=== PATIENT | female | born 1950 | race Caucasian/White ===

== ENCOUNTER 2021-04-09 11:46 | Outpatient (CLI) | payer MEDICARE, BC | END 2021-04-09 23:59 | disposition home or self-care (01) | LOC: LAB 11:46 | PROVIDERS: ATTEND Nurse Practitioner | DX: R05.1 Acute cough (principal); Z20.822 Contact with and (suspected) exposure to COVID-19 ==

== ENCOUNTER 2021-05-22 09:36 | Outpatient (CLI) | payer MEDICARE, BC | END 2021-05-22 09:37 | disposition critical access hospital (66) | LOC: EMS 09:36 | DX: S99.912A Unspecified injury of left ankle, initial encounter (principal); M25.552 Pain in left hip; W10.8XXA Fall (on) (from) other stairs and steps, initial encounter; Y92.008 Other place in unspecified non-institutional (private) residence as the place of occurrence of the external cause | CPT/HCPCS: A0425; A0427 ==

== ENCOUNTER 2021-05-22 09:54 | Inpatient (IN) | payer MEDICARE, BC ==
[2021-05-22] MEDS ORDERED: ceFAZolin 1 GM in SODIUM CHLORIDE 0.9% MINIBAG 100 ML IV STA (10:08)
[2021-05-22] MEDS ORDERED: TETANUS/DIPHTHERIA/PERTUSSIS 0.5 ML SYRINGE IM ONE (10:08)
[2021-05-22] MEDS ORDERED: HYDROmorphone 1 MG/ML CARPUJECT IVP STA (10:09)
--- NOTE | 2021-05-22 10:14 | ED Physician Documentation ---
PD HPI LOWER EXT INJURY - Stated complaint Stated Complaint: L LEG/ANKLE/HIP PX - Chief complaint Chief Complaint: Trauma Ext - History obtained from History obtained from: Patient, EMS - History of Present Illness PD HPI LOW EXT INJURY LOCATION: Left, Ankle Type of injury: Fall Where injury occurred: Home Pain level max: 9 Pain level now: 4 Improved by: Rest Worsened by: Moving, Palpating Contributing factors: No: Anticoagulated - Additional information Additional information: Patient is a 71-year-old female who presents to the emergency department after a slip and fall. She fell down approximately 1 stair. Complaining of pain and deformity of the left ankle. Bleeding noted at the site. She is not anticoagulated. No head, neck, back pain. Initially did have some hip pain as well, but this has since resolved and she states she can move the hip and it does not hurt. Review of Systems Ten Systems: 10 systems reviewed and negative Constitutional: denies: Fever, Chills Respiratory: denies: Cough GI: denies: Nausea, Vomiting, Diarrhea Skin: denies: Rash Musculoskeletal: denies: Neck pain, Back pain Neurologic: denies: Headache PD PAST MEDICAL HISTORY - Past Medical History Past Medical History: Yes Endocrine/Autoimmune: HyPOthyroidism - Present Medications Home Medications: Ambulatory Orders Medication Instructions Recorded Confirmed Venlafaxine HCl [Effexor Xr] 150 mg PO DAILY 05/22/21 05/22/21 buPROPion HCL [Bupropion Xl] 150 mg PO DAILY 05/22/21 05/22/21 - Allergies Allergies/Adverse Reactions: Allergies Allergy/AdvReac Type Severity Reaction Status Date / Time bee venom protein (honey bee) Allergy Anaphylaxis Verified 05/22/21 14:36 - Living Situation Living Situation: reports: With family Living Arrangement: reports: At home - Social History Does the pt have substance abuse?: No - Family History Family history: reports: Non contributory PD ED PE NORMAL - Vitals Vital signs reviewed: Yes - General General: Alert and oriented X 3, No acute distress, Well developed/nourished - HEENT HEENT: Atraumatic, PERRL, Moist mucous membranes - Neck Neck: Supple, no meningeal sign, No bony TTP, C-Spine cleared by NEXUS criteria - Cardiac Cardiac: RRR, Strong equal pulses - Respiratory Respiratory: No respiratory distress, Clear bilaterally - Abdomen Abdomen: Soft, Non tender, Non distended - Back Back: No spinal TTP - Derm Derm: Warm and dry - Extremities Extremities: Other (Deformity noted to the left lower tib/fib area. Just above the ankle. There is an open laceration with bleeding. Neurovascularly intact. 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, No motor deficit, No sensory deficit, Normal speech Eye Opening: Spontaneous Motor: Obeys Commands Verbal: Oriented GCS Score: 15 - Psych Psych: Normal mood, Normal affect Results - Vitals Vitals: Vital Signs - 24 hr 05/22/21 09:59 Temperature 36.6 C Heart Rate 86 Respiratory 16 Rate Blood Pressure 144/69 H O2 Saturation 96 Oxygen O2 Source Room air - EKG (time done) 1117 Rate: Rate (enter#) (81) Rhythm: NSR [place]: Normal Intervals: Normal GA QRS: Normal Ischemia: Normal ST segments - Labs Labs: Laboratory Tests 05/22/21 05/22/21 05/22/21 10:24 10:24 12:17 WBC 7.7 RBC 4.19 L Hgb 12.8 Hct 37.1 MCV 88.5 MCH 30.5 MCHC 34.5 RDW 12.9 Plt Count 234 MPV 8.8 Neut # (Auto) 4.3 Lymph # (Auto) 2.3 Heard # (Auto) 1.1 H Eos # (Auto) 0.1 Baso # (Auto) 0.1 Absolute Nucleated RBC 0.00 Nucleated RBC % 0.0 Sodium 138 Potassium 4.0 Chloride 100 L Carbon Dioxide 27 Anion Gap 11.0 BUN 23 H Creatinine 0.7 Estimated GFR (MDRD) 82 L Glucose 105 H Calcium 9.6 Total Bilirubin 0.6 AST 25 ALT 25 Alkaline Phosphatase 83 Total Protein 7.1 Albumin 4.4 Globulin 2.7 Albumin/Globulin Ratio 1.6 Lipase 32 Nasal Adenovirus (PCR) NOT DETECTED Nasal B. parapertussis DNA (PCR) NOT DETECTED Nasal Coronavir 229E PCR NOT DETECTED Nasal Coronavir HKU1 PCR NOT DETECTED Nasal Coronavir NL63 PCR NOT DETECTED Nasal Coronavir OC43 PCR NOT DETECTED Nasal Enterovir/Rhinovir PCR DETECTED A Nasal Influenza B PCR NOT DETECTED Nasal Influenza A PCR NOT DETECTED Nasal Parainfluen 1 PCR NOT DETECTED Nasal Parainfluen 2 PCR NOT DETECTED Nasal Parainfluen 3 PCR NOT DETECTED Nasal Parainfluen 4 PCR NOT DETECTED Nasal RSV (PCR) NOT DETECTED Nasal B.pertussis DNA PCR NOT DETECTED Nasal C.pneumoniae (PCR) NOT DETECTED Ross Human Metapneumo PCR NOT DETECTED Nasal M.pneumoniae (PCR) NOT DETECTED Nasal SARS-CoV-2 (PCR) NOT DETECTED - Rads (name of study) L ankle xray Radiology: Final report received, EMP read contemporaneously, See rad report cxr Radiology: Final report received, EMP read contemporaneously, See rad report Procedures - Splint (location) Left lower extremity Splint applied by: Physician, Tech Type of splint: Fiberglass, Short leg, Posterior Other: Patient tolerated well, No complications, Neurovascular intact PD MEDICAL DECISION MAKING - ED course Complexity details: reviewed results, re-evaluated patient, considered differential, d/w patient, d/w bridal consultant ED course: 71-year-old female presents to the emergency department with a left ankle fracture. Appears to be an open fracture from a puncture from the tibia. Findings were discussed with Dr. Zepeda, orthopedics who evaluated the images as well. Request that we apply gentle traction and place the patient in a splint. This was done. He also requested that we dressed the wound with Betadine and gauze. This was done as well. Neurovascularly intact. Patient was given Ancef IV. Tetanus up-to-date. Discussed the case with the hospitalist, Dr. Perry who will admit Patient will be admitted for further care. This document was made in part using voice recognition software. While efforts are made to proofread this document, sound alike and grammatical errors may occur. IMPRESSION: 1. A comminuted distal tibial fracture is displaced and angulated with a crack that extends to the subtalar joint. 2. Associated angulated, displaced distal fibular shaft fracture with overriding. IMPRESSION: No evidence acute pulmonary process. Departure - Departure Disposition: [facility] DC/Xfer Clinical Impression: Open fracture of tibia and fibula Qualifiers: Encounter type: initial encounter Open fracture type: open type I or II Laterality: left Qualified Code(s): S82.202B - Unspecified fracture of shaft of left tibia, initial encounter for open fracture type I or II Condition: Stable Discharge Date/Time: 05/22/21 16:00
[2021-05-22 10:29] LABS: BASOPHILS # (AUTO) 0.1 10^3/uL (0.0-0.1); BASOPHILS % (AUTO) 0.8 %; EOSINOPHILS # (AUTO) 0.1 10^3/uL (0.0-0.7); HCT - HEMATOCRIT 37.1 % (37.0-47.0); HGB - HEMOGLOBIN 12.8 g/dL (12.0-16.0); LYMPHOCYTES # (AUTO) 2.3 10^3/uL (1.5-3.5); LYMPHOCYTES % (AUTO) 29.1 %; MEAN CORPUSCULAR HEMOGLOBIN 30.5 pg (27.0-31.0); MEAN CORPUSCULAR HGB CONC 34.5 g/dL (32.0-36.0); MEAN CORPUSCULAR VOLUME 88.5 fL (81.0-99.0); MEAN PLATELET VOLUME 8.8 fL (7.9-10.8); MONOCYTES # (AUTO) 1.1 10^3/uL (0.0-1.0); MONOCYTES % (AUTO) 13.8 %; NEUTROPHILS # (AUTO) 4.3 10^3/uL (1.5-6.6); NEUTROPHILS % (AUTO) 55.2 %; PLT - PLATELET COUNT 234 10^3/uL (130-450); RED BLOOD COUNT 4.19 10^6/uL (4.20-5.40); RED CELL DISTRIBUTION WIDTH 12.9 % (12.0-15.0); WHITE BLOOD COUNT 7.7 x10^3/uL (4.8-10.8)
[2021-05-22 10:42] LABS: ALBUMIN 4.4 g/dL (3.2-5.5); ALBUMIN/GLOBULIN RATIO 1.6 (1.0-2.2); BILIRUBIN,TOTAL 0.6 mg/dL (0.2-1.0); CALCIUM 9.6 mg/dL (8.5-10.3); CREATININE 0.7 mg/dL (0.4-1.0); TOTAL PROTEIN 7.1 g/dL (6.7-8.2)
--- NOTE | 2021-05-22 10:53 | XRAY Report ---
PROCEDURE: Ankle 3 View LT INDICATIONS: fall, ankle pain TECHNIQUE: 2 views of the ankle were acquired. COMPARISON: None FINDINGS: Bones: There is a comminuted, angulated, displaced distal left tibial diametaphyseal fracture with a nondisplaced crack extending vertically down into the articular surface at the tibiotalar joint. Ther e is a displaced distal shaft fracture of the left fibula with angulation and overriding. Ankle morti se is normally aligned. No suspicious bony lesions. Soft tissues: No tibiotalar joint effusion. Achilles tendon appears normal. IMPRESSION: 1. A comminuted distal tibial fracture is displaced and angulated with a crack that extends to the dooley btalar joint. 2. Associated angulated, displaced distal fibular shaft fracture with overriding. Reviewed by: Ricardo Morejon MD on 05/22/2021 10:52 AM [facility] [place] Approved by: Ricardo Morejon MD on 05/22/2021 10:52 AM [facility] [place] Station ID: [id number]
--- NOTE | 2021-05-22 10:54 | XRAY Report ---
PROCEDURE: Chest 1 View X-Ray INDICATIONS: pre-op TECHNIQUE: One view of the chest was acquired. COMPARISON: None FINDINGS: Surgical changes and devices: None. Lungs and pleura: No pleural effusions or pneumothorax. Lungs are clear. Mediastinum: Mediastinal contours appear normal. Heart size is normal. Bones and chest wall: No suspicious bony lesions. Overlying soft tissues appear unremarkable. IMPRESSION: No evidence acute pulmonary process. Reviewed by: Ricardo Morejon MD on 05/22/2021 10:53 AM [facility] Approved by: Ricardo Morejon MD on 05/22/2021 10:53 AM [facility] Station ID: [id number]
[2021-05-22] MEDS ORDERED: MORPHINE 2 MG/ML CARPUJECT IVP STA ×2 (11:32→12:27)
[2021-05-22 13:28] LABS: B. PARAPERTUSSIS- RESP PCR PAN NOT DETECTED; B. PERTUSSIS- RESP PCR PANEL NOT DETECTED; C. PNEUMONIAE- RESP PCR PANEL NOT DETECTED; CORONAVIRUS 229E-RESP PCR NOT DETECTED; CORONAVIRUS HKU1-RESP PCR NOT DETECTED; CORONAVIRUS NL63-RESP PCR NOT DETECTED; CORONAVIRUS OC43-RESP PCR NOT DETECTED; HUMAN METAPNEUMOVIRUS NOT DETECTED; INFLUENZA A- RESP PCR PANEL NOT DETECTED; INFLUENZA B - RESP PCR PANEL NOT DETECTED; M. PNEUMONIAE- RESP PCR PANEL NOT DETECTED; PARAINFLUENZA VIRUS 1 NOT DETECTED; PARAINFLUENZA VIRUS 2 NOT DETECTED; PARAINFLUENZA VIRUS 3 NOT DETECTED; PARAINFLUENZA VIRUS 4 NOT DETECTED; RHINOVIRUS/ENTEROVIRUS DETECTED; RSV- RESP PCR PANEL NOT DETECTED; SARS-CoV-2 -RESP PCR PANEL NOT DETECTED
[2021-05-22] MEDS ORDERED: ONDANSETRON 4 MG/2 ML VIAL IVP PRN (13:32)
--- NOTE | 2021-05-22 13:41 | HISTORY & PHYSICAL EXAMINATION ---
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 pt report when she was at her home perch, skiing on ice and fall. she denies loss of Consciousness. Pt was sent by ambulance. She fell down approximately 1 stair. she complain of left ankle pain after fall. Pt report there was edema and deformity, and bleeding at the left ankle. She is not taking anticoagulation. she denies other injury, there is no head, neck, back pain or hip pain. Xray of Left lower extremity reveal A comminuted distal tibia fracture is displaced and angulated with a crack that extended to the subtalar joint, Associated angulated, displaced distal fibular shaft fracture with overriding. Orthopedic surgeon was called, plan to have surgery on tomorrow. Discussed care goal with patient, patient hope to have DNR History - Past Medical History Endocrine/Autoimmune: reports: HyPOthyroidism MRSA Hx?: No - Family & Social History Family History: Mother: , Father: Family History Comment/Other: Patient report her father at early of 70 yrs with cardiac problem. Her mother at the age 86 from small bowel obstruction and the complication Living arrangement: At home Living Situation: With family Social History Notes: Patient reported she quit cigarette smoking when she was age 30, she denies alcohol or drug use - POLST Patient has POLST: No Meds/Allgy - Home Medications Home Medications: Ambulatory Orders Medication Instructions Recorded Confirmed Venlafaxine HCl [Effexor Xr] 150 mg PO DAILY 05/22/21 05/22/21 buPROPion HCL [Bupropion Xl] 150 mg PO DAILY 05/22/21 05/22/21 - Allergies Allergies/Adverse Reactions: Allergies Allergy/AdvReac Type Severity Reaction Status Date / Time bee venom protein (honey bee) Allergy Anaphylaxis Verified 05/22/21 14:36 Review of Systems - Constitutional Constitutional: denies: Fever, Chills - Eyes Eyes: denies: Pain - Cardiovascular Cariovascular: denies: Irregular heart rate, Palpitations, Chest pain, Lightheadedness, Syncope, Exertional dyspnea, Decr. exercise tolerance - Respiratory Respiratory: denies: Cough, SOB at rest, SOB with exertion - Gastrointestinal Gastrointestinal: denies: Abdominal pain, Diarrhea, Nausea, Vomiting - Musculoskeletal Musculoskeletal: reports: Muscle pain, Limited range of motion - Neurological Neurological: denies: General weakness, Focal weakness, Headache, Dizziness, Numbness, Abnormal gait, Seizures, Incoordination, Slurred speech Exam - Vital Signs Vital Signs: Vital Signs x48h Temp Pulse Resp BP Pulse Ox 05/22/21 09:59 36.6 C 86 16 144/69 H 96 - Physical Exam General Appearance: positive: No acute distress, Alert. negative: Lethargic Eyes Bilateral: positive: Normal inspection, No lid inflammation ENT: positive: ENT inspection nml, No signs of dehydration. negative: Purulent nasal drainage Neck: positive: Nml inspection, Trachea midline. negative: Tracheal deviation Respiratory: positive: Chest non-tender, No respiratory distress, Breath sounds nml. negative: Wheezes Cardiovascular: positive: Regular rate & rhythm, No murmur. negative: Tachycardia, Bradycardia, Systolic murmur, Diastolic murmur Peripheral Pulses: positive: 2+ Abdomen: positive: Non-tender, Nml bowel sounds, No distention. negative: Tenderness Back: positive: Nml inspection Skin: positive: Color nml, Warm, Dry. negative: Cyanosis Extremities: positive: Non-tender, Other (small blood at left ankle but no active bleeding. intact neurovascular at distal of left lower extremity) Neurologic/Psychiatric: positive: Oriented x3, Sensation nml, Mood/affect nml. negative: Weakness, Sensory loss, Facial droop, Slurred/abnml speech, Depressed mood/affect Conclusion/Plan - Problem List (1) Open fracture of tibia and fibula Conclusion/Plan: Patient had mechanical fall, X-ray show left ankle fracture of tibia and fibula. Orthopedic surgeon was called, plan to have surgery for patient on tomorrow. NPO after midnight, intravenous IV fluids, pain control. Lovenox for DVT prophylaxis Qualifiers: Encounter type: initial encounter Open fracture type: open type I or II Laterality: left Qualified Code(s): S82.202B - Unspecified fracture of shaft of left tibia, initial encounter for open fracture type I or II; S82.402B - Unspecified fracture of shaft of left fibula, initial encounter for open fracture type I or II (2) Encounter for preoperative assessment for noncoronary cardiac surgery Conclusion/Plan: Patient reported she has no cardiac history, EKG show sinus rhythm. She has a mechanical fall, she denied loss of consciousness, cardiac examination is benign. Estimated risk of adverse outcome with non-cardiac surgery show very low risk. Estimated rate of [place], pulmonary edema, VF, cardiac arrest or complete heart block show 0.4%. (3) Depression with anxiety Conclusion/Plan: Stable, Patient has a history of depression, resume patient home meds - Lab Results Fish Bones: 05/22/21 10:24 05/22/21 10:24 Core Measures - Anticipated LOS I expect patient to be DC'd or transferred within 96 hours.: Yes - DVT/VTE - Prophylaxis VTE/DVT Device ordered at admit?: Yes VTE/DVT Prophylaxis med ordered at admit?: Yes
[2021-05-22 14:32] LABS: INR 1.1 (0.8-1.2); PT - PROTHROMBIN TIME 12.8 secs (9.9-12.6)
[2021-05-22] MEDS: oxyCODONE 5 MG TABLET PO PRN ×2 (16:27→21:52)
[2021-05-22] MEDS: MORPHINE 2 MG/ML CARPUJECT IVP PRN ×3 (17:02→23:12)
[2021-05-22] MEDS: SODIUM CHLORIDE FLUSH 0.9% 10 ML SYRINGE IVP SCH (17:02)
[2021-05-22] MEDS: SODIUM CHLORIDE FLUSH 0.9% 10 ML SYRINGE IVP PRN ×2 (19:26→23:12)
--- NOTE | 2021-05-22 19:42 | HISTORY & PHYSICAL EXAMINATION ---
HPI - History Obtained From History obtained from: Patient - History of Present Illness HPI Comment/Other: 71-year-old woman who sustained a injury to her left leg earlier today at home. She was outdoors, coming down steps of her porch. When she hit the last step there was a patch of ice that caused her to slip and fall with injury to her left lower leg. She lives alone, recently moved to [place] about 3 months ago. She is independent in her activities of daily living. She had some local wound care to her left leg and a reduction of her deformity to left leg in the emergency room. She has been splinted, fiberglass, to left leg. She is relatively comfortable, alert. She is normally an outdoor ambulator and independent in activities of daily living. She has no neurovascular symptoms and her pain is under very good control.She denies chest pain, shortness of breath, dizziness, syncope or loss of consciousness associated with the fall. After the injury she was able to use her telephone to call for help but she could not bear any weight on her left leg. PMH/PSH - Past Medical History Endocrine/Autoimmune: positive: HyPOthyroidism MRSA Hx?: No - Past Surgical History Ortho: positive: Carpal Tunnel surgery Social & Family Hx - Social History Does the pt smoke?: No Smoking Status: Never smoker Does the pt have substance abuse?: No - POLST Patient has POLST: No Meds/Allgy - Home Medications Home Medications: Ambulatory Orders Medication Instructions Recorded Confirmed Venlafaxine HCl [Effexor Xr] 150 mg PO QPM 05/22/21 05/22/21 buPROPion HCL [Bupropion Xl] 150 mg PO QPM 05/22/21 05/22/21 - Allergies Allergies/Adverse Reactions: Allergies Allergy/AdvReac Type Severity Reaction Status Date / Time bee venom protein (honey bee) Allergy Anaphylaxis Verified 05/22/21 14:36 Exam - Vital Signs Vital Signs: Vital Signs x48h Temp Pulse Resp BP Pulse Ox 05/22/21 16:08 36.7 C 85 20 125/69 95 - Physical Exam General Appearance: positive: No acute distress, Alert Respiratory: positive: Chest non-tender, No respiratory distress Cardiovascular: positive: Regular rate & rhythm Peripheral Pulses: positive: 1+ Neurologic/Psychiatric: positive: Oriented x3, Motor nml, Sensation nml Comments/Other: Left leg shows a puncture wound from a open fracture left tibia on the medial side of the left leg distally. There is no clinical deformity. Neurovascular status is intact. Compartments are soft left leg left knee is nontender. Left foot has normal exam. Results - Lab Results Fish Bones: 05/22/21 10:24 05/22/21 10:24 Other Lab Results: Lab Results x24hrs 05/22/21 05/22/21 05/22/21 Range/Units 14:22 12:17 10:24 WBC (4.8-10.8) x10^3/uL RBC (4.20-5.40) 10^6/uL Hgb (12.0-16.0) g/dL Hct (37.0-47.0) % MCV (81.0-99.0) fL MCH (27.0-31.0) pg MCHC (32.0-36.0) g/dL RDW (12.0-15.0) % Plt Count (130-450) 10^3/uL MPV (7.9-10.8) fL Neut # (Auto) (1.5-6.6) 10^3/uL Lymph # (Auto) (1.5-3.5) 10^3/uL Steele # (Auto) (0.0-1.0) 10^3/uL Eos # (Auto) (0.0-0.7) 10^3/uL Baso # (Auto) (0.0-0.1) 10^3/uL Absolute Nucleated RBC x10^3/uL Nucleated RBC % /100WBC PT 12.8 H (9.9-12.6) secs INR 1.1 (0.8-1.2) Sodium 138 (135-145) mmol/L Potassium 4.0 (3.5-5.0) mmol/L Chloride 100 L (101-111) mmol/L Carbon Dioxide 27 (21-32) mmol/L Anion Gap 11.0 (6-13) BUN 23 H (6-20) mg/dL Creatinine 0.7 (0.4-1.0) mg/dL Estimated GFR (MDRD) 82 L (>89) Glucose 105 H (70-100) mg/dL Calcium 9.6 (8.5-10.3) mg/dL Total Bilirubin 0.6 (0.2-1.0) mg/dL AST 25 (10-42) IU/L ALT 25 (10-60) IU/L Alkaline Phosphatase 83 (42-121) IU/L Total Protein 7.1 (6.7-8.2) g/dL Albumin 4.4 (3.2-5.5) g/dL Globulin 2.7 (2.1-4.2) g/dL Albumin/Globulin Ratio 1.6 (1.0-2.2) Lipase 32 (22-51) U/L Nasal Adenovirus (PCR) NOT DETECTED Nasal B. parapertussis DNA (PCR) NOT DETECTED Nasal Coronavir 229E PCR NOT DETECTED Nasal Coronavir HKU1 PCR NOT DETECTED Nasal Coronavir NL63 PCR NOT DETECTED Nasal Coronavir OC43 PCR NOT DETECTED Nasal Enterovir/Rhinovir PCR DETECTED A Nasal Influenza B PCR NOT DETECTED Nasal Influenza A PCR NOT DETECTED Nasal Parainfluen 1 PCR NOT DETECTED Nasal Parainfluen 2 PCR NOT DETECTED Nasal Parainfluen 3 PCR NOT DETECTED Nasal Parainfluen 4 PCR NOT DETECTED Nasal RSV (PCR) NOT DETECTED Nasal B.pertussis DNA PCR NOT DETECTED Nasal C.pneumoniae (PCR) NOT DETECTED Ross Human Metapneumo PCR NOT DETECTED Nasal M.pneumoniae (PCR) NOT DETECTED Nasal SARS-CoV-2 (PCR) NOT DETECTED 05/22/21 Range/Units 10:24 WBC 7.7 (4.8-10.8) x10^3/uL RBC 4.19 L (4.20-5.40) 10^6/uL Hgb 12.8 (12.0-16.0) g/dL Hct 37.1 (37.0-47.0) % MCV 88.5 (81.0-99.0) fL MCH 30.5 (27.0-31.0) pg MCHC 34.5 (32.0-36.0) g/dL RDW 12.9 (12.0-15.0) % Plt Count 234 (130-450) 10^3/uL MPV 8.8 (7.9-10.8) fL Neut # (Auto) 4.3 (1.5-6.6) 10^3/uL Lymph # (Auto) 2.3 (1.5-3.5) 10^3/uL Steele # (Auto) 1.1 H (0.0-1.0) 10^3/uL Eos # (Auto) 0.1 (0.0-0.7) 10^3/uL Baso # (Auto) 0.1 (0.0-0.1) 10^3/uL Absolute Nucleated RBC 0.00 x10^3/uL Nucleated RBC % 0.0 /100WBC PT (9.9-12.6) secs INR (0.8-1.2) Sodium (135-145) mmol/L Potassium (3.5-5.0) mmol/L Chloride (101-111) mmol/L Carbon Dioxide (21-32) mmol/L Anion Gap (6-13) BUN (6-20) mg/dL Creatinine (0.4-1.0) mg/dL Estimated GFR (MDRD) (>89) Glucose (70-100) mg/dL Calcium (8.5-10.3) mg/dL Total Bilirubin (0.2-1.0) mg/dL AST (10-42) IU/L ALT (10-60) IU/L Alkaline Phosphatase (42-121) IU/L Total Protein (6.7-8.2) g/dL Albumin (3.2-5.5) g/dL Globulin (2.1-4.2) g/dL Albumin/Globulin Ratio (1.0-2.2) Lipase (22-51) U/L Nasal Adenovirus (PCR) Nasal B. parapertussis DNA (PCR) Nasal Coronavir 229E PCR Nasal Coronavir HKU1 PCR Nasal Coronavir NL63 PCR Nasal Coronavir OC43 PCR Nasal Enterovir/Rhinovir PCR Nasal Influenza B PCR Nasal Influenza A PCR Nasal Parainfluen 1 PCR Nasal Parainfluen 2 PCR Nasal Parainfluen 3 PCR Nasal Parainfluen 4 PCR Nasal RSV (PCR) Nasal B.pertussis DNA PCR Nasal C.pneumoniae (PCR) Ross Human Metapneumo PCR Nasal M.pneumoniae (PCR) Nasal SARS-CoV-2 (PCR) - Diagnostic Imaging Results Diagnostic Imaging Results: negative: Read independently (Open markedly displaced distal tibia and fibular fractures left leg.) Impression/Plan - Problem List Problem List: Open fracture left tibia and fibula The plan is irrigation debridement of open fracture tomorrow morning with intramedullary rodding of left tibia. This would be an open reduction internal fixation of left tibia and possibly the left fibula. I discussed the procedure with the patient and she is in agreement. The risk, goals and likelihood of achieving goals, alternatives to surgery and their consequences, disability and rarely mortality was discussed with her. Both general and procedure specific risks were discussed including adverse reaction to medication or anesthesia, myocardial infarction, cerebrovascular accident and, pulmonary embolus and perioperative infection. There is a potential for malunion, nonunion and infection at fracture site. She is in agreement to the surgery and has signed informed consent.
[2021-05-22] MEDS: buPROPion XL 150 MG TABLET PO SCH (20:51)
[2021-05-22] MEDS: VENLAFAXINE ER 75 MG CAPSULE PO SCH (20:51)
[2021-05-23] MEDS ORDERED: SODIUM CHLORIDE 0.9% 1,000 ML IV SCH (01:00)
[2021-05-23] MEDS: SODIUM CHLORIDE FLUSH 0.9% 10 ML SYRINGE IVP SCH ×4 (01:19→23:34)
[2021-05-23] MEDS: MORPHINE 2 MG/ML CARPUJECT IVP PRN ×2 (04:41→22:03)
[2021-05-23 06:34] LABS: BASOPHILS % (AUTO) 0.8 %; EOSINOPHILS % (AUTO) 0.8 %; HCT - HEMATOCRIT 31.2 % (37.0-47.0); HGB - HEMOGLOBIN 10.7 g/dL (12.0-16.0); LYMPHOCYTES # (AUTO) 2.2 10^3/uL (1.5-3.5); LYMPHOCYTES % (AUTO) 41.2 %; MEAN CORPUSCULAR HEMOGLOBIN 30.5 pg (27.0-31.0); MEAN CORPUSCULAR HGB CONC 34.3 g/dL (32.0-36.0); MEAN CORPUSCULAR VOLUME 88.9 fL (81.0-99.0); MEAN PLATELET VOLUME 9.3 fL (7.9-10.8); MONOCYTES # (AUTO) 0.9 10^3/uL (0.0-1.0); MONOCYTES % (AUTO) 16.8 %; NEUTROPHILS # (AUTO) 2.1 10^3/uL (1.5-6.6); NEUTROPHILS % (AUTO) 40.2 %; PLT - PLATELET COUNT 196 10^3/uL (130-450); RED BLOOD COUNT 3.51 10^6/uL (4.20-5.40); WHITE BLOOD COUNT 5.3 x10^3/uL (4.8-10.8)
[2021-05-23 06:40] LABS: CALCIUM 9.1 mg/dL (8.5-10.3); CREATININE 0.6 mg/dL (0.4-1.0); POTASSIUM 3.9 mmol/L (3.5-5.0)
[2021-05-23] MEDS ORDERED: KETOROLAC 30 MG/ML VIAL ONE (06:47)
[2021-05-23] MEDS ORDERED: DEXAMETHASONE 4 MG/ML VIAL ONE (06:47)
[2021-05-23] MEDS ORDERED: LIDOCAINE-MPF 2% 5 ML VIAL ONE (06:47)
[2021-05-23] MEDS ORDERED: PROPOFOL 200 MG/20 ML VIAL IVP ONE (06:47)
[2021-05-23] MEDS ORDERED: ROPIVACAINE 0.5% PF 20 ML AMPULE ONE (06:47)
[2021-05-23] MEDS ORDERED: ONDANSETRON 4 MG/2 ML VIAL ONE (06:47)
[2021-05-23] MEDS ORDERED: DEXMEDETOMIDINE 200 MCG/2 ML VIAL ONE (06:48)
[2021-05-23] MEDS ORDERED: SODIUM CHLORIDE 0.9% 10 ML VIAL IVP ONE (06:54)
--- NOTE | 2021-05-23 07:23 | ANESTHESIA ---
Pre-Anesthesia VS, & Labs - Diagnosis right tib fib fracture - Procedure ORIF right tibia fibular fracture Vital Signs: Temp Pulse Resp BP Pulse Ox 37.3 C 87 18 122/59 L 92 05/23/21 01:38 05/23/21 01:38 05/23/21 01:38 05/23/21 01:38 05/23/21 01:38 Height: 5 ft 4 in Weight (kg): 66.5 kg Body Mass Index: 25.1 BMI Classification: Overweight - NPO >8 hours - Is Patient ?: No - Lab Results Current Lab Results: Laboratory Tests 05/23/21 06:05: TSH 5.43 05/23/21 06:05: Sodium 137, Potassium 3.9, Chloride 102, Carbon Dioxide 25, Anion Gap 10.0, BUN 19, Creatinine 0.6, Estimated GFR (MDRD) 99, Glucose 100, Calcium 9.1 05/23/21 06:05: WBC 5.3, RBC 3.51 L, Hgb 10.7 L, Hct 31.2 L, MCV 88.9, MCH 30.5, MCHC 34.3, RDW 13.0, Plt Count 196, MPV 9.3, Neut # (Auto) 2.1, Lymph # (Auto) 2.2, [place] # (Auto) 0.9, Eos # (Auto) 0.0, Baso # (Auto) 0.0, Absolute Nucleated RBC 0.00, Nucleated RBC % 0.0 05/22/21 14:22: PT 12.8 H, INR 1.1 05/22/21 10:24: Sodium 138, Potassium 4.0, Chloride 100 L, Carbon Dioxide 27, Anion Gap 11.0, BUN 23 H, Creatinine 0.7, Estimated GFR (MDRD) 82 L, Glucose 105 H, Calcium 9.6, Total Bilirubin 0.6, AST 25, ALT 25, Alkaline Phosphatase 83, Total Protein 7.1, Albumin 4.4, Globulin 2.7, Albumin/Globulin Ratio 1.6, Lipase 32 05/22/21 10:24: WBC 7.7, RBC 4.19 L, Hgb 12.8, Hct 37.1, MCV 88.5, MCH 30.5, MCHC 34.5, RDW 12.9, Plt Count 234, MPV 8.8, Neut # (Auto) 4.3, Lymph # (Auto) 2.3, [place] # (Auto) 1.1 H, Eos # (Auto) 0.1, Baso # (Auto) 0.1, Absolute Nucleated RBC 0.00, Nucleated RBC % 0.0 Fish Bones: 05/23/21 06:05 05/23/21 06:05 Home Medications and Allergies Home Medications: Ambulatory Orders Venlafaxine HCl [Effexor Xr] 150 mg PO QPM 05/22/21 buPROPion HCL [Bupropion Xl] 150 mg PO QPM 05/22/21 Active Medications Acetaminophen (Acetaminophen 325 Mg Tablet) 650 mg PO Q4HR PRN PRN Reason: Pain 1 to 4 Bupropion HCl (Bupropion Xl 150 Mg Tablet) 150 mg PO QPM [facility] Last Admin: 05/22/21 20:51 Dose: 150 mg Documented by: Enoxaparin Sodium (Enoxaparin 40 Mg/0.4 Ml Syringe) 40 mg SUBQ DAILY [facility] Sodium Chloride (Normal Saline 0.9%) 1,000 mls @ 83.3 mls/hr IV .Q12H1M [facility] Stop: 05/24/21 07:13 Levothyroxine Sodium (Levothyroxine 100 Mcg Tablet) 100 mcg PO QDAC [facility] Liothyronine Sodium (Liothyronine 5 Mcg Tablet) 5 mcg PO QDAC [facility] Morphine Sulfate (Morphine 2 Mg/Ml Carpuject) 2 mg IVP Q2HR PRN PRN Reason: Pain 8 to 10 Last Admin: 05/23/21 04:41 Dose: 2 mg Documented by: Ondansetron HCl (Ondansetron 4 Mg/2 Ml Vial) 4 mg IVP Q6HR PRN PRN Reason: Nausea / Vomiting Oxycodone HCl (Oxycodone 5 Mg Tablet) 5 mg PO Q4HR PRN PRN Reason: Pain 5 to 7 Last Admin: 05/22/21 21:52 Dose: 5 mg Documented by: Sodium Chloride (Sodium Chloride Flush 0.9% 10 Ml Syringe) 10 ml IVP PRN PRN PRN Reason: NEEDED PER PROVIDER ORDERS Last Admin: 05/22/21 23:12 Dose: 10 ml Documented by: Sodium Chloride (Sodium Chloride Flush 0.9% 10 Ml Syringe) 10 ml IVP 0100,0900,1700 [facility] Last Admin: 05/23/21 01:19 Dose: Not Given Documented by: Venlafaxine HCl (Venlafaxine Er 75 Mg Capsule) 150 mg PO QPM [facility] Last Admin: 05/22/21 20:51 Dose: 150 mg Documented by: Venlafaxine HCl [Effexor Xr] 150 mg PO QPM 05/22/21 buPROPion HCL [Bupropion Xl] 150 mg PO QPM 05/22/21 Allergies/Adverse Reactions: Allergies Allergy/AdvReac Type Severity Reaction Status Date / Time bee venom protein (honey bee) Allergy Anaphylaxis Verified 05/22/21 14:36 Anes History & Medical History - Anesthetic History Anesthesia Complications: reports: No previous complications - Medical History Endocrine/Autoimmune: reports: HyPOthyroidism Smoking Status: Never smoker History of Cancer?: No - Surgical History Orthopedic: reports: Carpal Tunnel surgery Exam General: Alert, Oriented x3, Cooperative Dental: WNL Mouth Opening: Greater than 4 Fingerbreadths Neck Mobility: Normal Mallampati classification: II Thyromental Distance: greater than 6 cm Respiratory: Lungs clear Cardiovascular: Regular rate Plan Anesthesia Type: General, Popliteal Block, Adductor Block Consent for Procedure(s) Verified and Reviewed: Yes Code Status: Attempt Resuscitation ASA classification: 2-Mild systemic disease Is this case an emergency?: No
[2021-05-23] MEDS ORDERED: fentaNYL 100 MCG/2 ML VIAL ONE (07:39)
[2021-05-23] MEDS ORDERED: ceFAZolin 1 GM VIAL ONE (08:07)
--- NOTE | 2021-05-23 10:42 | OPERATIVE REPORT ---
Operative Report - General Admit Date: 05/22/21 Procedure Date: 05/23/21 Planned Procedure: Open reduction internal fixation left tibia Pre-Op Diagnosis: Open displaced fractures left tibia and fibula Procedure Performed: Open reduction internal fixation left tibia with static locked intramedullary nail: [employer] [place] nail: 8.5 mm x 33 mm with 2 proximal screws and 3 distal locking screws Post Op Diagnosis: Open grade 1 left tibia and fibula fractures - Procedure Note Primary Surgeon: Honorio Zepeda MD Secondary Surgeon: Fili IBANEZ Anesthesia Provider: Lion Boone CRNA Anesthesia Technique: Regional block Indications: This is a 71-year-old woman that slipped on the ice coming down steps of her porch yesterday and sustained a displaced angulated open fracture left tibia and fibula. She had a mechanical type fall as been documented. She has been evaluated preoperatively. She is independent in activities of daily living. She was identified as having open fracture in the emergency room, given cephalosporin antibiotic and had the deformity reduced. She had a puncture type wound at the apex of the tibial fracture, spike of bone penetrating the skin. She had no sign of compartment syndrome and her swelling was relatively mild to the left leg. She was splinted after being seen in the emergency room, admitted and brought to the OR today for surgical stabilization of unstable open fractures left distal tibia and fibula. An informed consent has been obtained. Findings: Both fractures involve the distal portion of the left leg including distal tibia and fibula. The fibular fracture and tibial fractures were short oblique fractures. There was a puncture wound over the medial tibia with an area of about 1 cm of surrounding contused skin. The skin appeared to be viable but obviously abnormal from injury. There is no drainage from the puncture wound. The compartments of the left leg were soft. The fracture was very unstable to left tibia. Complications: None - Other Other Information/Narrative: Patient was brought to the operating room and placed in a supine position after satisfactory anesthesia had been achieved, a bolster was placed beneath the left buttock to internally rotate the left leg. A foam bolster was applied to the table to allow positioning of the left leg with knee flexion. No tourniquet was utilized. The left lower extremity was prepped and draped in sterile manner usual fashion. A timeout procedure was performed by the entire operating room team and all were in agreement. The C arm image intensifier was used intermittently throughout the procedure and had a sterile drape applied. A lateral patellar incision was made beginning adjacent to the lateral edge of the patellar tendon and extending it proximally about 5 cm. The lateral patellar retinaculum was incised. The synovium and capsule were kept intact using a extra-articular approach for the tibial starting point for intramedullary rodding. A guide pin was then inserted and the x-ray was then obtained to try to place the guidepin on the medial edge of the lateral tibial spine and on the anterior cortex of the tibia on the lateral view. Care was taken to achieve optimal rotation by having the lateral edge of the plateau biceps and proximal fibula. The guidepin was inserted and then reamed proximally to allow insertion of a long flexible intramedullary guide pin which was inserted across the fracture with manual reduction of the fracture. Manual reduction was achieved using a [id number] Curlex around the ankle to help manipulate the fracture which was unstable to the distal left tibia. The guidepin was inserted in the midline on both AP and lateral views. The length of the guidepin was measured, 33 mm in length. Intramedullary reaming was then performed from 9mm to 10.0 mm and half millimeter increments. This allowed for use of 8.5 mm diameter grover, 33 mm in length. This was impacted to the fracture site, a concentric reduction was achieved and the grover was impacted distally. The alignment was markedly improved and stabilized. 3 distal locking screws were inserted using a freehand technique through 1 cm incisions. 2 of the screws were inserted from medial to lateral and one from anterior to posterior. The anterior screw was inserted to avoid the tendinous structures over the ant erior ankle. Bicortical fixation was achieved with the locking screws distally. Retrograde impaction of the nail proximally was performed and this allowed the fracture to impact well so that there was no distraction at the fracture site. 2 proximal locking screws were inserted into the tibia. Final intraoperative x- rays were obtained and showed good alignment of the internal fixation, fracture, ankle mortise and knee joint. The puncture wound was gently debrided with low- pressure lavage. Did not make a formal approach into the fracture site because of fear of creating skin necrosis. The retinaculum was closed with 2 oh strata fix suture to the lateral patella. The skin was closed with 3-0 nylon at the lateral incision of the patella and also the small incisions for screw fixation. There is no clinical deformity to the left leg. The compartments were soft. The fracture was stabilized. Xeroform and dry sterile dressings were applied to the left leg. A short leg posterior fiberglass splint was applied.
[2021-05-23] MEDS ORDERED: LACTATED RINGERS 1,000 ML IV ONE (10:48)
[2021-05-23] MEDS ORDERED: fentaNYL 100 MCG/2 ML VIAL IVP PRN (11:06)
[2021-05-23] MEDS ORDERED: HYDROmorphone 0.5 MG/0.5 ML SYRINGE IVP PRN (11:06)
[2021-05-23] MEDS ORDERED: NALOXONE 0.4 MG/ML VIAL IVP PRN (11:06)
[2021-05-23] MEDS ORDERED: ONDANSETRON 4 MG/2 ML VIAL IVP PRN (11:06)
[2021-05-23] MEDS ORDERED: ATROPINE ABBOJECT 1 MG/10 ML SYRINGE IVP PRN (11:06)
[2021-05-23] MEDS ORDERED: MORPHINE 2 MG/ML CARPUJECT IVP PRN (11:06)
--- NOTE | 2021-05-23 11:37 | PROVIDER PROGRESS NOTE ---
Assessment/Plan - Problem List (1) Open fracture of tibia and fibula Qualifiers: Encounter type: initial encounter Open fracture type: open type I or II Laterality: left Qualified Code(s): S82.202B - Unspecified fracture of shaft of left tibia, initial encounter for open fracture type I or II; S82.402B - Unspecified fracture of shaft of left fibula, initial encounter for open fracture type I or II Assessment/Plan: 05/23/21 pt had Open reduction internal fixation left tibia with static locked intramedullary nail done on the morning. continue PT/OT, pain control, DVT prophylaxis with Lovenox. Consult with social work for disposition planning Patient had mechanical fall, X-ray show left ankle fracture of tibia and fibula. Orthopedic surgeon was called, plan to have surgery for patient on tomorrow. NPO after midnight, intravenous IV fluids, pain control. Lovenox for DVT prophylaxis (2) Encounter for preoperative assessment for noncoronary cardiac surgery Conclusion/Plan: Patient reported she has no cardiac history, EKG show sinus rhythm. She has a mechanical fall, she denied loss of consciousness, cardiac examination is benign. Estimated risk of adverse outcome with non-cardiac surgery show very low risk. Estimated rate of ND, pulmonary edema, VF, cardiac arrest or complete heart block show 0.4%. (3) Depression with anxiety Conclusion/Plan: Stable, Patient has a history of depression, resume patient home meds (4)Hypothyroidism TSH is normal, resume home synthroid - Current Meds Current Meds: Current Medications Generic Name Dose Route Start Last Admin Trade Name Freq PRN Reason Stop Dose Admin Bupropion HCl 150 mg 05/22/21 21:00 05/22/21 20:51 Bupropion Xl 150 Mg Tablet PO 150 mg QPM [facility] Administration Morphine Sulfate 2 mg 05/22/21 13:32 05/23/21 04:41 Morphine 2 Mg/Ml Carpuject IVP 2 mg Q2HR PRN Administration Pain 8 to 10 Oxycodone HCl 5 mg 05/22/21 13:32 05/22/21 21:52 Oxycodone 5 Mg Tablet PO 5 mg Q4HR PRN Administration Pain 5 to 7 Sodium Chloride 10 ml 05/22/21 13:32 05/22/21 23:12 Sodium Chloride Flush 0.9% 10 Ml Syringe IVP 10 ml PRN PRN Administration NEEDED PER PROVIDER ORDERS Sodium Chloride 10 ml 05/22/21 17:00 05/23/21 01:19 Sodium Chloride Flush 0.9% 10 Ml Syringe IVP Not Given 0100,0900,1700 [facility] Venlafaxine HCl 150 mg 05/22/21 21:00 05/22/21 20:51 Venlafaxine Er 75 Mg Capsule PO 150 mg QPM [facility] Administration - Lab Result Fish Bone Diagrams: 05/23/21 06:05 05/23/21 06:05 - Additional Planning My Orders: My Active Orders 05/22/21 13:32 Activity Orders [RC] Q2HR IO [RC] IOSHIFT Initiate Bowel Care Protocol [RC] .protocol Initiate Line Care Protocol [RC] QSHIFT Initiate Personal Care Protoco [RC] .protocol Vital Signs [RC] 0800,1600,0000 Acetaminophen [Tylenol] 650 mg PO Q4HR PRN Morphine Inj (Carpuject) [Morphine (Carpuject)] 2 mg IVP Q2HR PRN Ondansetron Inj [Zofran Inj] 4 mg IVP Q6HR PRN Sodium Chloride Flush 0.9% [Normal Saline Flush 0.9%] 10 ml IVP PRN PRN oxyCODONE [Roxicodone] 5 mg PO Q4HR PRN Code Status [OTHERS] Routine Condition of Patient [OTHERS] Routine DVT Prophylaxis [OTHERS] Routine 05/22/21 13:35 SCDs [RC] QSHIFT 05/22/21 13:36 Orthopedics Consult [CONS] Routine Social Work Consult [CONS] Routine Evaluate and Treat OT [OT] Routine Evaluate and Treat PT [PT] Routine 05/22/21 16:52 Code Status [OTHERS] Routine 05/22/21 17:00 Sodium Chloride Flush 0.9% [Normal Saline Flush 0.9%] 10 ml IVP 0100,0900,1700 05/22/21 21:00 Venlafaxine ER [Effexor ER] 150 mg PO QPM buPROPion [Wellbutrin Xl] 150 mg PO QPM 05/23/21 07:12 Main Continuation and Care [RC] QSHIFT Main Insertion [RC] QSHIFT 05/23/21 07:13 Sodium Chloride 0.9% [Normal Saline 0.9%] 1,000 ml IV 83.3 mls/hr 05/23/21 Lunch Regular Diet [DIET] 05/23/21 14:00 Enoxaparin [Lovenox] 40 mg SUBQ DAILY 05/24/21 05:00 BMP - BASIC METABOLIC PANEL [CHEM] DAILYLAB CBC - COMP BLD CT W/AUTO DIFF [HEME] DAILYLAB 05/25/21 05:00 BMP - BASIC METABOLIC PANEL [CHEM] DAILYLAB CBC - COMP BLD CT W/AUTO DIFF [HEME] DAILYLAB 05/26/21 05:00 BMP - BASIC METABOLIC PANEL [CHEM] DAILYLAB CBC - COMP BLD CT W/AUTO DIFF [HEME] DAILYLAB 05/27/21 05:00 BMP - BASIC METABOLIC PANEL [CHEM] DAILYLAB CBC - COMP BLD CT W/AUTO DIFF [HEME] DAILYLAB 05/28/21 05:00 BMP - BASIC METABOLIC PANEL [CHEM] DAILYLAB CBC - COMP BLD CT W/AUTO DIFF [HEME] DAILYLAB Subjective - Subjective Patient Reports: Resting Comfortably Objective Vital Signs: Vital Signs - 24 hr 05/22/21 05/23/21 05/23/21 16:08 01:38 10:46 Temperature 36.7 C 37.3 C 36.6 C Heart Rate 83 Heart Rate [ 85 87 Brachial] Respiratory 20 18 16 Rate Blood Pressure 128/63 Blood Pressure 125/69 122/59 L [Right Brachial artery] O2 Saturation 95 92 100 05/23/21 05/23/21 05/23/21 10:50 10:55 11:00 Temperature 36.5 C Heart Rate 86 87 88 Heart Rate [ Brachial] Respiratory 16 16 16 Rate Blood Pressure 130/63 119/58 L 123/61 Blood Pressure [Right Brachial artery] O2 Saturation 97 97 97 05/23/21 11:05 Temperature Heart Rate 88 Heart Rate [ Brachial] Respiratory 16 Rate Blood Pressure 122/61 Blood Pressure [Right Brachial artery] O2 Saturation 98 Oxygen O2 Source Room air I&O (Last 24 Hrs): Intake and Output Totals x24h 05/21/21 05/22/21 05/23/21 23:59 23:59 23:59 Intake Total 500 623.333 Output Total 0 Balance 500 623.333 General: Alert, Oriented x3, Cooperative, No acute distress HEENT: Atraumatic Neck: Supple Lymphatic: no adenopathy Neuro: Alert, Non Focal, Oriented Times 3 Cardiovascular: Regular rate, Normal S1, Normal S2 Respiratory: Chest non-tender, No respiratory distress Abdomen: Normal bowel sounds, Soft Extremities: Normal pulses - Results Results: Laboratory Results WBC 5.3 x10^3/uL (4.8-10.8) 05/23/21 06:05 RBC 3.51 10^6/uL (4.20-5.40) L 05/23/21 06:05 Hgb 10.7 g/dL (12.0-16.0) L 05/23/21 06:05 Hct 31.2 % (37.0-47.0) L 05/23/21 06:05 MCV 88.9 fL (81.0-99.0) 05/23/21 06:05 MCH 30.5 pg (27.0-31.0) 05/23/21 06:05 MCHC 34.3 g/dL (32.0-36.0) 05/23/21 06:05 RDW 13.0 % (12.0-15.0) 05/23/21 06:05 Plt Count 196 10^3/uL (130-450) 05/23/21 06:05 MPV 9.3 fL (7.9-10.8) 05/23/21 06:05 Neut # (Auto) 2.1 10^3/uL (1.5-6.6) 05/23/21 06:05 Lymph # (Auto) 2.2 10^3/uL (1.5-3.5) 05/23/21 06:05 [place] # (Auto) 0.9 10^3/uL (0.0-1.0) 05/23/21 06:05 Eos # (Auto) 0.0 10^3/uL (0.0-0.7) 05/23/21 06:05 Baso # (Auto) 0.0 10^3/uL (0.0-0.1) 05/23/21 06:05 Absolute Nucleated RBC 0.00 x10^3/uL 05/23/21 06:05 Nucleated RBC % 0.0 /100WBC 05/23/21 06:05 PT 12.8 secs (9.9-12.6) H 05/22/21 14:22 INR 1.1 (0.8-1.2) 05/22/21 14:22 Sodium 137 mmol/L (135-145) 05/23/21 06:05 Potassium 3.9 mmol/L (3.5-5.0) 05/23/21 06:05 Chloride 102 mmol/L (101-111) 05/23/21 06:05 Carbon Dioxide 25 mmol/L (21-32) 05/23/21 06:05 Anion Gap 10.0 (6-13) 05/23/21 06:05 BUN 19 mg/dL (6-20) 05/23/21 06:05 Creatinine 0.6 mg/dL (0.4-1.0) 05/23/21 06:05 Estimated GFR (MDRD) 99 (>89) 05/23/21 06:05 Glucose 100 mg/dL (70-100) 05/23/21 06:05 Calcium 9.1 mg/dL (8.5-10.3) 05/23/21 06:05 Total Bilirubin 0.6 mg/dL (0.2-1.0) 05/22/21 10:24 AST 25 IU/L (10-42) 05/22/21 10:24 ALT 25 IU/L (10-60) 05/22/21 10:24 Alkaline Phosphatase 83 IU/L (42-121) 05/22/21 10:24 Total Protein 7.1 g/dL (6.7-8.2) 05/22/21 10:24 Albumin 4.4 g/dL (3.2-5.5) 05/22/21 10:24 Globulin 2.7 g/dL (2.1-4.2) 05/22/21 10:24 Albumin/Globulin Ratio 1.6 (1.0-2.2) 05/22/21 10:24 Lipase 32 U/L (22-51) 05/22/21 10:24 TSH 5.43 uIU/mL (0.34-5.60) 05/23/21 06:05 Nasal Adenovirus (PCR) NOT DETECTED 05/22/21 12:17 Nasal B. parapertussis DNA (PCR) NOT DETECTED 05/22/21 12:17 Nasal Coronavir 229E PCR NOT DETECTED 05/22/21 12:17 Nasal Coronavir HKU1 PCR NOT DETECTED 05/22/21 12:17 Nasal Coronavir NL63 PCR NOT DETECTED 05/22/21 12:17 Nasal Coronavir OC43 PCR NOT DETECTED 05/22/21 12:17 Nasal Enterovir/Rhinovir PCR DETECTED A 05/22/21 12:17 Nasal Influenza B PCR NOT DETECTED 05/22/21 12:17 Nasal Influenza A PCR NOT DETECTED 05/22/21 12:17 Nasal Parainfluen 1 PCR NOT DETECTED 05/22/21 12:17 Nasal Parainfluen 2 PCR NOT DETECTED 05/22/21 12:17 Nasal Parainfluen 3 PCR NOT DETECTED 05/22/21 12:17 Nasal Parainfluen 4 PCR NOT DETECTED 05/22/21 12:17 Nasal RSV (PCR) NOT DETECTED 05/22/21 12:17 Nasal B.pertussis DNA PCR NOT DETECTED 05/22/21 12:17 Nasal C.pneumoniae (PCR) NOT DETECTED 05/22/21 12:17 Ross Human Metapneumo PCR NOT DETECTED 05/22/21 12:17 Nasal M.pneumoniae (PCR) NOT DETECTED 05/22/21 12:17 Nasal SARS-CoV-2 (PCR) NOT DETECTED 05/22/21 12:17 ABX Reporting Has patient been on IV antibiotics over the past 48 hours?: Yes Current Medications - Current Medications Current Medications: Active Medications Acetaminophen (Acetaminophen 325 Mg Tablet) 650 mg PO Q4HR PRN PRN Reason: Pain 1 to 4 Bupropion HCl (Bupropion Xl 150 Mg Tablet) 150 mg PO QPM [facility] Last Admin: 05/22/21 20:51 Dose: 150 mg Documented by: Enoxaparin Sodium (Enoxaparin 40 Mg/0.4 Ml Syringe) 40 mg SUBQ DAILY [facility] Sodium Chloride (Normal Saline 0.9%) 1,000 mls @ 83.3 mls/hr IV .Q12H1M [facility] Stop: 05/24/21 07:13 Cefazolin Sodium 2 gm/ Sodium (Chloride) 100 mls @ 200 mls/hr IV Q8H [facility] Stop: 05/24/21 00:29 Levothyroxine Sodium (Levothyroxine 100 Mcg Tablet) 100 mcg PO QDAC [facility] Liothyronine Sodium (Liothyronine 5 Mcg Tablet) 5 mcg PO QDAC [facility] Morphine Sulfate (Morphine 2 Mg/Ml Carpuject) 2 mg IVP Q2HR PRN PRN Reason: Pain 8 to 10 Last Admin: 05/23/21 04:41 Dose: 2 mg Documented by: Ondansetron HCl (Ondansetron 4 Mg/2 Ml Vial) 4 mg IVP Q6HR PRN PRN Reason: Nausea / Vomiting Oxycodone HCl (Oxycodone 5 Mg Tablet) 5 mg PO Q4HR PRN PRN Reason: Pain 5 to 7 Last Admin: 05/22/21 21:52 Dose: 5 mg Documented by: Sodium Chloride (Sodium Chloride Flush 0.9% 10 Ml Syringe) 10 ml IVP PRN PRN PRN Reason: NEEDED PER PROVIDER ORDERS Last Admin: 05/22/21 23:12 Dose: 10 ml Documented by: Sodium Chloride (Sodium Chloride Flush 0.9% 10 Ml Syringe) 10 ml IVP 0100,0900,1700 [facility] Last Admin: 05/23/21 01:19 Dose: Not Given Documented by: Venlafaxine HCl (Venlafaxine Er 75 Mg Capsule) 150 mg PO QPM [facility] Last Admin: 05/22/21 20:51 Dose: 150 mg Documented by: Venlafaxine HCl [Effexor Xr] 150 mg PO QPM 05/22/21 buPROPion HCL [Bupropion Xl] 150 mg PO QPM 05/22/21
--- NOTE | 2021-05-23 11:53 | PHARMACY PROGRESS NOTE ---
- Best Possible Medication History Admit Date and Time: 05/22/21 9116 Processed by: Pharmacy Medication History completed: Yes Secondary Source(s): Pharmacy records, Insurance records As the person ultimately responsible for medication therapy, providers are able to order a medication from an existing home medication list in [facility] via the "Reconcile Routine" prior to Confirmation of that medication by client application support engineer. Such practice is discouraged except when the physician, in their clinical judgment, deems that a medical need exists for a medication without regard to previous use.
[2021-05-23] MEDS ORDERED: LACTATED RINGERS 1,000 ML IV SCH (12:00)
[2021-05-23] MEDS: LEVOTHYROXINE 100 MCG TABLET PO SCH (12:14)
[2021-05-23] MEDS: SODIUM CHLORIDE 0.9% 1,000 ML IV SCH ×3 (12:15→23:33)
[2021-05-23] MEDS: LIOTHYRONINE 5 MCG TABLET PO SCH (12:15)
[2021-05-23] MEDS: ENOXAPARIN 40 MG/0.4 ML SYRINGE SUBQ SCH (13:37)
[2021-05-23] MEDS: ceFAZolin 2 GM in SODIUM CHLORIDE 0.9% 100ML 100 ML IV SCH ×2 (16:11→23:33)
--- NOTE | 2021-05-23 18:00 | XRAY Report ---
PROCEDURE: OR C-Arm Procedure INDICATIONS: fx left tib fib TECHNIQUE: 2 views of the left tibia. COMPARISON: None. FINDINGS: Intraoperative images demonstrate postsurgical changes compatible with ORIF of distal tibial fracture . Intramedullary grover with 2 proximal and 2 distal interlocking screws noted. There is anatomic alignm ent of the tibial fracture. Displaced fibular fracture is definitely noted. IMPRESSION: Expected postsurgical change from ORIF of distal left tibia fracture. Reviewed by: Melinda Augustin MD, PhD on 05/23/2021 5:59 PM PST Approved by: Melinda Augustin MD, PhD on 05/23/2021 5:59 PM PST Station ID: [id number]
--- NOTE | 2021-05-23 18:09 | ANESTHESIA POST OP EVALUATION ---
Anesthesia Post Eval - Post Anesthesia Eval Vitals: Last Vital Signs Temp 37.3 C 05/23/21 16:08 Pulse 86 05/23/21 16:08 Resp 17 05/23/21 16:08 BP 113/56 L 05/23/21 16:08 Pulse Ox 97 05/23/21 16:08 CV Function Including HR & BP: Stable Pain Control: Satisfactory Nausea & Vomiting: Negative Mental Status: Baseline Respiratory Status: Airway Patent Hydration Status: Satisfactory Anesthesia Complications: None
[2021-05-23] MEDS: VENLAFAXINE ER 75 MG CAPSULE PO SCH (20:45)
[2021-05-23] MEDS: buPROPion XL 150 MG TABLET PO SCH (20:45)
[2021-05-23] MEDS: CALCIUM CARBONATE CHEW 500 MG TABLET PO SCH (20:45)
[2021-05-23] MEDS ORDERED: SODIUM CHLORIDE 0.9% 100ML 100 ML IV ONE (23:36)
[2021-05-23] MEDS ORDERED: ceFAZolin 2 GM in SODIUM CHLORIDE 0.9% 100ML 100 ML IV ONE (23:59)
[2021-05-24] MEDS: MORPHINE 2 MG/ML CARPUJECT IVP PRN ×2 (03:45→11:45)
[2021-05-24] MEDS: LIOTHYRONINE 5 MCG TABLET PO SCH (05:31)
[2021-05-24] MEDS: LEVOTHYROXINE 100 MCG TABLET PO SCH (05:31)
[2021-05-24 06:24] LABS: BASOPHILS % (AUTO) 0.3 %; EOSINOPHILS % (AUTO) 0.2 %; HCT - HEMATOCRIT 23.8 % (37.0-47.0); HGB - HEMOGLOBIN 8.2 g/dL (12.0-16.0); LYMPHOCYTES # (AUTO) 1.5 10^3/uL (1.5-3.5); LYMPHOCYTES % (AUTO) 23.7 %; MEAN CORPUSCULAR HEMOGLOBIN 30.9 pg (27.0-31.0); MEAN CORPUSCULAR HGB CONC 34.5 g/dL (32.0-36.0); MEAN CORPUSCULAR VOLUME 89.8 fL (81.0-99.0); MEAN PLATELET VOLUME 9.5 fL (7.9-10.8); MONOCYTES # (AUTO) 1.1 10^3/uL (0.0-1.0); MONOCYTES % (AUTO) 18.1 %; NEUTROPHILS # (AUTO) 3.6 10^3/uL (1.5-6.6); NEUTROPHILS % (AUTO) 57.4 %; PLT - PLATELET COUNT 141 10^3/uL (130-450); RED BLOOD COUNT 2.65 10^6/uL (4.20-5.40); WHITE BLOOD COUNT 6.3 x10^3/uL (4.8-10.8)
[2021-05-24 06:31] LABS: CALCIUM 8.1 mg/dL (8.5-10.3); CREATININE 0.6 mg/dL (0.4-1.0); POTASSIUM 3.6 mmol/L (3.5-5.0)
[2021-05-24] MEDS ORDERED: KETOROLAC 15 MG/ML VIAL IVP PRN (07:31)
[2021-05-24 07:44] LABS: ABSOLUTE RETICS # AUTO 0.045 10^6/uL (0.020-0.110); RED BLOOD COUNT 2.66 10^6/uL (4.20-5.40); RETICULOCYTE COUNT % (AUTO) 1.7 % (0.5-2.3)
--- NOTE | 2021-05-24 07:51 | PROVIDER PROGRESS NOTE ---
Subjective - General Admit Date: 05/22/21 Procedure Date: 05/23/21 Post Op Days: 1 Procedure Performed: ORIF left tibia - Review of Systems Wound/Incisions: positive: Dressing dry and intact General: negative: Fever, Chills Pulmonary: negative: Shortness of breath Cardiovascular: negative: Chest pain Gastrointestinal: negative: Nausea, Vomiting - Other Other Information/Narrative: Patient is a 71-year-old female medical history includes hypothyroidism who is postop day 1 after ORIF of the left tibia after a tibiofibular fracture following a fall. Fibular grover was inserted by Dr Honorio Barry [facility] on 05/23/2021. Patient's pain is well controlled. She denies any signs or symptoms of infection. Patient reports she currently lives in the basement of her grandcritical access hospitaler's house requiring stairs to access kitchen and bathrooms. Objective - Patient Data Vital Signs: Vital Signs x48h Temp Pulse Resp BP Pulse Ox 05/24/21 04:46 37.2 C 98 17 114/35 L 93 Weight: Weight 05/22/21 05/23/21 05/24/21 23:59 23:59 23:59 Weight (kg) 66.5 kg 66.5 kg Intake & Output: Intake and Output Totals x24h 05/22/21 05/23/21 05/24/21 23:59 23:59 23:59 Intake Total 500 2069.623 200 Output Total 400 450 Balance 500 1669.623 -250 - Lab Results Lab Results: 05/24/21 05:46 05/24/21 05:46 Other Lab Results: Lab Results x24hrs 05/24/21 05/24/21 Range/Units 05:46 05:46 WBC 6.3 (4.8-10.8) x10^3/uL RBC 2.65 L (4.20-5.40) 10^6/uL Hgb 8.2 L (12.0-16.0) g/dL Hct 23.8 L (37.0-47.0) % MCV 89.8 (81.0-99.0) fL MCH 30.9 (27.0-31.0) pg MCHC 34.5 (32.0-36.0) g/dL RDW 13.0 (12.0-15.0) % Plt Count 141 (130-450) 10^3/uL MPV 9.5 (7.9-10.8) fL Neut # (Auto) 3.6 (1.5-6.6) 10^3/uL Lymph # (Auto) 1.5 (1.5-3.5) 10^3/uL Waldo # (Auto) 1.1 H (0.0-1.0) 10^3/uL Eos # (Auto) 0.0 (0.0-0.7) 10^3/uL Baso # (Auto) 0.0 (0.0-0.1) 10^3/uL Absolute Nucleated RBC 0.00 x10^3/uL Nucleated RBC % 0.0 /100WBC Sodium 134 L (135-145) mmol/L Potassium 3.6 (3.5-5.0) mmol/L Chloride 103 (101-111) mmol/L Carbon Dioxide 24 (21-32) mmol/L Anion Gap 7.0 (6-13) BUN 15 (6-20) mg/dL Creatinine 0.6 (0.4-1.0) mg/dL Estimated GFR (MDRD) 99 (>89) Glucose 109 H (70-100) mg/dL Calcium 8.1 L (8.5-10.3) mg/dL - Imaging Results Radiology Imaging: positive: EMP read indepedently (Intra-Op C arm radiographs were independently visualized that showed good reduction of fracture utilizing a tibial grover with good anatomical alignment of both the tibia and the fibula, No apparent hardware loosening.) - Current Medications Current Medications: Current Medications Generic Name Dose Route Start Last Admin Trade Name Freq PRN Reason Stop Dose Admin Bupropion HCl 150 mg 05/22/21 21:00 05/23/21 20:45 Bupropion Xl 150 Mg Tablet PO 150 mg QPM LINDA Administration Calcium Carbonate/Glycine 500 mg 05/23/21 21:00 05/23/21 20:45 Calcium Carbonate Chew 500 Mg Tablet PO 500 mg BID LINDA Administration Enoxaparin Sodium 40 mg 05/23/21 14:00 05/23/21 13:37 Enoxaparin 40 Mg/0.4 Ml Syringe SUBQ 40 mg DAILY LINDA Administration Levothyroxine Sodium 100 mcg 05/23/21 07:00 05/24/21 05:31 Levothyroxine 100 Mcg Tablet PO 100 mcg QDAC LINDA Administration Liothyronine Sodium 5 mcg 05/23/21 07:00 05/24/21 05:31 Liothyronine 5 Mcg Tablet PO 5 mcg QDAC LINDA Administration Morphine Sulfate 2 mg 05/22/21 13:32 05/24/21 03:45 Morphine 2 Mg/Ml Carpuject IVP 2 mg Q2HR PRN Administration Pain 8 to 10 Oxycodone HCl 5 mg 05/22/21 13:32 05/22/21 21:52 Oxycodone 5 Mg Tablet PO 5 mg Q4HR PRN Administration Pain 5 to 7 Sodium Chloride 10 ml 05/22/21 13:32 05/22/21 23:12 Sodium Chloride Flush 0.9% 10 Ml Syringe IVP 10 ml PRN PRN Administration NEEDED PER PROVIDER ORDERS Sodium Chloride 10 ml 05/22/21 17:00 05/23/21 23:34 Sodium Chloride Flush 0.9% 10 Ml Syringe IVP 10 ml 0100,0900,1700 LINDA Administration Venlafaxine HCl 150 mg 05/22/21 21:00 05/23/21 20:45 Venlafaxine Er 75 Mg Capsule PO 150 mg QPM LINDA Administration - Physical Exam Wound/Incisions: positive: Dressing dry and intact General Appearance: positive: No acute distress, Alert Respiratory: positive: No respiratory distress Skin: positive: Color nml, No rash, Warm, Dry Neurologic/Psychiatric: positive: Oriented x3 Comments/Other: Splint and Leonardo wraps are dry and intact. Exposed toes have good capillary refill. Gross motor and sensation intact left lower limb. ABX Reporting Has patient been on IV antibiotics over the past 48 hours?: Yes Impression/Plan - Problem List Problem List: Patient is a 71-year-old female whose history includes hypothyroidism who is postop day 1 after ORIF of a left tibia fracture reduced with a tibial grover she also has an associated left fibular shaft fracture that is being treated nonsurgically. Patients can to be nonweightbearing utilizing a front wheeled walker. Pain is well controlled, no drainage or any signs or symptoms of infection. Patient is to take 81 mg of aspirin twice daily for 6 weeks for DVT prophylaxis. Patient is cleared from an orthopedic surgery standpoint for discharge. Patient is being comanaged by the hospitalist, with a social work consult for placement.
[2021-05-24 08:13] LABS: FERRITIN 57.1 ng/mL (11.0-306.8)
[2021-05-24 08:38] LABS: % IRON SATURATION 25 % (20-50); IRON 59 ug/dL (28-170); TOTAL IRON BINDING CAPACITY 241 ug/dL (250-450); TRANSFERRIN 172 mg/dL (192-382)
[2021-05-24] MEDS ORDERED: ASPIRIN EC 81 MG TABLET PO SCH (09:00)
[2021-05-24] MEDS: CHOLECALCIFEROL 25 MCG TABLET PO SCH (09:06)
[2021-05-24] MEDS: ENOXAPARIN 40 MG/0.4 ML SYRINGE SUBQ SCH (09:06)
[2021-05-24] MEDS: CALCIUM CARBONATE CHEW 500 MG TABLET PO SCH ×2 (09:06→21:17)
[2021-05-24] MEDS: polyethylene glycoL 3350 17 GM PACKET PO SCH (09:06)
[2021-05-24] MEDS: SODIUM CHLORIDE FLUSH 0.9% 10 ML SYRINGE IVP SCH ×2 (09:07→15:55)
[2021-05-24 10:05] LABS: HCT - HEMATOCRIT 23.8 % (37.0-47.0); HGB - HEMOGLOBIN 8.1 g/dL (12.0-16.0)
--- NOTE | 2021-05-24 11:42 | PROVIDER PROGRESS NOTE ---
Assessment/Plan - Problem List (1) Open fracture of tibia and fibula Qualifiers: Encounter type: initial encounter Open fracture type: open type I or II Laterality: left Qualified Code(s): S82.202B - Unspecified fracture of shaft of left tibia, initial encounter for open fracture type I or II; S82.402B - Unspecified fracture of shaft of left fibula, initial encounter for open fracture type I or II Assessment/Plan: 05/24 day 1 s/p of orthopedics surgery,Open reduction internal fixation left tibia with static locked intramedullary nail, add Toradol PRN for pain control, continue PT/OT, and Aspirin bid for DVT prophylaxis 05/23/21 pt had Open reduction internal fixation left tibia with static locked intramedullary nail done on the morning. continue PT/OT, pain control, DVT prophylaxis with Lovenox. Consult with social work for disposition planning Patient had mechanical fall, X-ray show left ankle fracture of tibia and fibula. Orthopedic surgeon was called, plan to have surgery for patient on tomorrow. NPO after midnight, intravenous IV fluids, pain control. Lovenox for DVT prophylaxis (2) anemia HGB is 8.2, recheck is 8.1, will repeat H&H, it is likely secondary to acute blood loss of surgery. pt seem asymptomatic for her anemia now. continue lab mo nitor (3) Depression with anxiety Conclusion/Plan: Stable, Patient has a history of depression, resume patient home meds (4)Hypothyroidism TSH is normal, resume home synthroid - Current Meds Current Meds: Current Medications Generic Name Dose Route Start Last Admin Trade Name Jorge PRN Reason Stop Dose Admin Bupropion HCl 150 mg 05/22/21 21:00 05/23/21 20:45 Bupropion Xl 150 Mg Tablet PO 150 mg QPM LINDA Administration Calcium Carbonate/Glycine 500 mg 05/23/21 21:00 05/24/21 09:06 Calcium Carbonate Chew 500 Mg Tablet PO 500 mg BID LINDA Administration Cholecalciferol 50 mcg 05/24/21 09:00 05/24/21 09:06 Cholecalciferol 25 Mcg Tablet PO 50 mcg DAILY LINDA Administration Levothyroxine Sodium 100 mcg 05/23/21 07:00 05/24/21 05:31 Levothyroxine 100 Mcg Tablet PO 100 mcg QDAC LINDA Administration Liothyronine Sodium 5 mcg 05/23/21 07:00 05/24/21 05:31 Liothyronine 5 Mcg Tablet PO 5 mcg QDAC LINDA Administration Morphine Sulfate 2 mg 05/22/21 13:32 05/24/21 03:45 Morphine 2 Mg/Ml Carpuject IVP 2 mg Q2HR PRN Administration Pain 8 to 10 Oxycodone HCl 5 mg 05/22/21 13:32 05/22/21 21:52 Oxycodone 5 Mg Tablet PO 5 mg Q4HR PRN Administration Pain 5 to 7 Polyethylene Glycol 17 gm 05/24/21 09:00 05/24/21 09:06 Polyethylene Glycol 3350 17 Gm Packet PO 17 gm DAILY LINDA Administration Sodium Chloride 10 ml 05/22/21 13:32 05/22/21 23:12 Sodium Chloride Flush 0.9% 10 Ml Syringe IVP 10 ml PRN PRN Administration NEEDED PER PROVIDER ORDERS Sodium Chloride 10 ml 05/22/21 17:00 05/24/21 09:07 Sodium Chloride Flush 0.9% 10 Ml Syringe IVP Not Given 0100,0900,1700 LINDA Venlafaxine HCl 150 mg 05/22/21 21:00 05/23/21 20:45 Venlafaxine Er 75 Mg Capsule PO 150 mg QPM LINDA Administration - Lab Result Fish Bone Diagrams: 05/24/21 09:57 05/24/21 05:46 - Additional Planning My Orders: My Active Orders 05/23/21 Dinner Soft Mechanical Diet [DIET] 05/23/21 21:00 Calcium Carbonate [Tums] 500 mg PO BID 05/24/21 07:31 Ketorolac Inj (15Mg) [Toradol Inj (15Mg)] 15 mg IVP Q6HR PRN 05/24/21 09:00 Cholecalciferol [Vitamin D3] 50 mcg PO DAILY polyethylene glycoL 3350 [Miralax] 17 gm PO DAILY 05/25/21 05:00 BMP - BASIC METABOLIC PANEL [CHEM] DAILYLAB CBC - COMP BLD CT W/AUTO DIFF [HEME] DAILYLAB 05/25/21 09:00 Aspirin Chewable [[place] Aspirin] 81 mg PO BID 05/26/21 05:00 BMP - BASIC METABOLIC PANEL [CHEM] DAILYLAB CBC - COMP BLD CT W/AUTO DIFF [HEME] DAILYLAB 05/27/21 05:00 BMP - BASIC METABOLIC PANEL [CHEM] DAILYLAB CBC - COMP BLD CT W/AUTO DIFF [HEME] DAILYLAB 05/28/21 05:00 BMP - BASIC METABOLIC PANEL [CHEM] DAILYLAB CBC - COMP BLD CT W/AUTO DIFF [HEME] DAILYLAB Subjective - Subjective Patient Reports: Resting Comfortably Objective Vital Signs: Vital Signs - 24 hr 05/23/21 05/23/21 05/23/21 11:45 12:00 12:15 Temperature 36.6 C 36.6 C 36.6 C Heart Rate [ 86 87 86 Brachial] Respiratory 18 18 18 Rate Blood Pressure 82/70 L 123/52 L 100/56 L [Right Brachial artery] O2 Saturation 95 97 95 05/23/21 05/23/21 05/23/21 12:30 13:30 14:28 Temperature 36.5 C 36.4 C L Heart Rate [ 86 88 87 Brachial] Respiratory 18 18 Rate Blood Pressure 111/57 L 106/46 L 100/48 L [Right Brachial artery] O2 Saturation 96 96 05/23/21 05/23/21 05/23/21 16:08 20:00 23:40 Temperature 37.3 C 37.2 C 37.4 C Heart Rate [ 86 80 90 Brachial] Respiratory 17 16 17 Rate Blood Pressure 113/56 L 109/45 L 112/52 L [Right Brachial artery] O2 Saturation 97 98 96 05/24/21 05/24/21 04:46 08:08 Temperature 37.2 C 37.1 C Heart Rate [ 98 89 Brachial] Respiratory 17 16 Rate Blood Pressure 114/35 L 115/45 L [Right Brachial artery] O2 Saturation 93 93 Oxygen O2 Source Room air I&O (Last 24 Hrs): Intake and Output Totals x24h 05/22/21 05/23/21 05/24/21 23:59 23:59 23:59 Intake Total 500 2069.623 300 Output Total 400 600 Balance 500 1669.623 -300 General: Alert, Oriented x3, Cooperative, No acute distress HEENT: Atraumatic Neck: Supple Lymphatic: no adenopathy Neuro: Alert, Non Focal, Oriented Times 3 Cardiovascular: Regular rate, Normal S1, Normal S2 Respiratory: Chest non-tender, No respiratory distress, Breath sounds nml Abdomen: Normal bowel sounds, Soft Extremities: Normal pulses, Other (normal distal neurovascular exam on left lower extremity.) - Results Results: Laboratory Results WBC 6.3 x10^3/uL (4.8-10.8) 05/24/21 05:46 RBC 2.65 10^6/uL (4.20-5.40) L 05/24/21 05:46 RBC 2.66 10^6/uL (4.20-5.40) L 05/24/21 05:46 Hgb 8.1 g/dL (12.0-16.0) L 05/24/21 09:57 Hct 23.8 % (37.0-47.0) L 05/24/21 09:57 MCV 89.8 fL (81.0-99.0) 05/24/21 05:46 MCH 30.9 pg (27.0-31.0) 05/24/21 05:46 MCHC 34.5 g/dL (32.0-36.0) 05/24/21 05:46 RDW 13.0 % (12.0-15.0) 05/24/21 05:46 Plt Count 141 10^3/uL (130-450) 05/24/21 05:46 MPV 9.5 fL (7.9-10.8) 05/24/21 05:46 Reticulocyte % (Auto) 1.70 % (0.5-2.3) 05/24/21 05:46 Neut # (Auto) 3.6 10^3/uL (1.5-6.6) 05/24/21 05:46 Lymph # (Auto) 1.5 10^3/uL (1.5-3.5) 05/24/21 05:46 Haines # (Auto) 1.1 10^3/uL (0.0-1.0) H 05/24/21 05:46 Eos # (Auto) 0.0 10^3/uL (0.0-0.7) 05/24/21 05:46 Baso # (Auto) 0.0 10^3/uL (0.0-0.1) 05/24/21 05:46 Absolute Nucleated RBC 0.00 x10^3/uL 05/24/21 05:46 Nucleated RBC % 0.0 /100WBC 05/24/21 05:46 Absolute Retic 0.045 10^6/uL (0.020-0.110) 05/24/21 05:46 PT 12.8 secs (9.9-12.6) H 05/22/21 14:22 INR 1.1 (0.8-1.2) 05/22/21 14:22 Sodium 134 mmol/L (135-145) L 05/24/21 05:46 Potassium 3.6 mmol/L (3.5-5.0) 05/24/21 05:46 Chloride 103 mmol/L (101-111) 05/24/21 05:46 Carbon Dioxide 24 mmol/L (21-32) 05/24/21 05:46 Anion Gap 7.0 (6-13) 05/24/21 05:46 BUN 15 mg/dL (6-20) 05/24/21 05:46 Creatinine 0.6 mg/dL (0.4-1.0) 05/24/21 05:46 Estimated GFR (MDRD) 99 (>89) 05/24/21 05:46 Glucose 109 mg/dL (70-100) H 05/24/21 05:46 Calcium 8.1 mg/dL (8.5-10.3) L 05/24/21 05:46 Iron 59 ug/dL (28-170) 05/24/21 05:46 TIBC 241 ug/dL (250-450) L 05/24/21 05:46 % Saturation 25 % (20-50) 05/24/21 05:46 Transferrin 172 mg/dL (192-382) L 05/24/21 05:46 Ferritin 57.1 ng/mL (11.0-306.8) 05/24/21 05:46 Total Bilirubin 0.6 mg/dL (0.2-1.0) 05/22/21 10:24 AST 25 IU/L (10-42) 05/22/21 10:24 ALT 25 IU/L (10-60) 05/22/21 10:24 Alkaline Phosphatase 83 IU/L (42-121) 05/22/21 10:24 Lactate Dehydrogenase 135 IU/L (91-225) 05/24/21 05:46 Total Protein 7.1 g/dL (6.7-8.2) 05/22/21 10:24 Albumin 4.4 g/dL (3.2-5.5) 05/22/21 10:24 Globulin 2.7 g/dL (2.1-4.2) 05/22/21 10:24 Albumin/Globulin Ratio 1.6 (1.0-2.2) 05/22/21 10:24 Lipase 32 U/L (22-51) 05/22/21 10:24 Vitamin B12 264 pg/mL (180-914) 05/24/21 05:46 TSH 5.43 uIU/mL (0.34-5.60) 05/23/21 06:05 Nasal Adenovirus (PCR) NOT DETECTED 05/22/21 12:17 Nasal B. parapertussis DNA (PCR) NOT DETECTED 05/22/21 12:17 Nasal Coronavir 229E PCR NOT DETECTED 05/22/21 12:17 Nasal Coronavir HKU1 PCR NOT DETECTED 05/22/21 12:17 Nasal Coronavir NL63 PCR NOT DETECTED 05/22/21 12:17 Nasal Coronavir OC43 PCR NOT DETECTED 05/22/21 12:17 Nasal Enterovir/Rhinovir PCR DETECTED A 05/22/21 12:17 Nasal Influenza B PCR NOT DETECTED 05/22/21 12:17 Nasal Influenza A PCR NOT DETECTED 05/22/21 12:17 Nasal Parainfluen 1 PCR NOT DETECTED 05/22/21 12:17 Nasal Parainfluen 2 PCR NOT DETECTED 05/22/21 12:17 Nasal Parainfluen 3 PCR NOT DETECTED 05/22/21 12:17 Nasal Parainfluen 4 PCR NOT DETECTED 05/22/21 12:17 Nasal RSV (PCR) NOT DETECTED 05/22/21 12:17 Nasal B.pertussis DNA PCR NOT DETECTED 05/22/21 12:17 Nasal C.pneumoniae (PCR) NOT DETECTED 05/22/21 12:17 Ross Human Metapneumo PCR NOT DETECTED 05/22/21 12:17 Nasal M.pneumoniae (PCR) NOT DETECTED 05/22/21 12:17 Nasal SARS-CoV-2 (PCR) NOT DETECTED 05/22/21 12:17 ABX Reporting Has patient been on IV antibiotics over the past 48 hours?: No Current Medications - Current Medications Current Medications: Medications Summary Bupropion HCl (Bupropion Xl 150 Mg Tablet) 150 mg PO QPM LINDA Last Admin: 05/23/21 20:45 Dose: 150 mg Documented by: RYLAND Calcium Carbonate/Glycine (Calcium Carbonate Chew 500 Mg Tablet) 500 mg PO BID [facility] Last Admin: 05/24/21 09:06 Dose: 500 mg Documented by: GLEN Cholecalciferol (Cholecalciferol 25 Mcg Tablet) 50 mcg PO DAILY [facility] Last Admin: 05/24/21 09:06 Dose: 50 mcg Documented by: GLEN Levothyroxine Sodium (Levothyroxine 100 Mcg Tablet) 100 mcg PO QDAC [facility] Last Admin: 05/24/21 05:31 Dose: 100 mcg Documented by: ORA Liothyronine Sodium (Liothyronine 5 Mcg Tablet) 5 mcg PO QDAC [facility] Last Admin: 05/24/21 05:31 Dose: 5 mcg Documented by: ORA Morphine Sulfate (Morphine 2 Mg/Ml Carpuject) 2 mg IVP Q2HR PRN PRN Reason: Pain 8 to 10 Last Admin: 05/24/21 11:45 Dose: 2 mg Documented by: GLEN Pain Assessment Document 05/24/21 11:45 (Rec: 05/24/21 11:46 RC [id number]) Pain Level Pain Scale Used 0-10 Intensity (0-10) 7 Oxycodone HCl (Oxycodone 5 Mg Tablet) 5 mg PO Q4HR PRN PRN Reason: Pain 5 to 7 Last Admin: 05/22/21 21:52 Dose: 5 mg Documented by: SHERRY Pain Assessment Document 05/22/21 21:52 AB (Rec: 05/22/21 21:52 AB [id number]) Pain Level Pain Scale Used 0-10 Intensity (0-10) 6 Re-Assess: Pain Reassessment Document 05/22/21 22:52 AB (Rec: 05/22/21 22:57 AB [id number]) Reassessment Pain Scale Used 0-10 Pain Intensity (0-10) 4 Effective/Ineffective Effective Polyethylene Glycol (Polyethylene Glycol 3350 17 Gm Packet) 17 gm PO DAILY [facility] Last Admin: 05/24/21 09:06 Dose: 17 gm Documented by: GLEN Sodium Chloride (Sodium Chloride Flush 0.9% 10 Ml Syringe) 10 ml IVP PRN PRN PRN Reason: NEEDED PER PROVIDER ORDERS Last Admin: 05/22/21 23:12 Dose: 10 ml Documented by: SHERRY Sodium Chloride (Sodium Chloride Flush 0.9% 10 Ml Syringe) 10 ml IVP 0 100,0900,1700 [facility] Last Admin: 05/24/21 09:07 Dose: Not Given Documented by: GLEN Non-Admin Reason: Physiologically Contraindicated Venlafaxine HCl (Venlafaxine Er 75 Mg Capsule) 150 mg PO QPM [facility] Last Admin: 05/23/21 20:45 Dose: 150 mg Documented by: RYLAND Discontinued Medications Diphtheria/Tetanus/Acell Pertussis (Tetanus/Diphtheria/Pertussis 0.5 Ml Syringe) 0.5 ml IM .ONCE ONE Stop: 05/22/21 10:09 Last Admin: 05/22/21 10:30 Dose: 0.5 ml Documented by: OSBALDO Vaccine Eligibility Document 05/22/21 10:30 [facility] (Rec: 05/22/21 10:30 [facility] [id number]) Vaccine Eligibility Vaccine Information Sheet Given Yes VIS Given Date 05/22/21 Vaccine Eligibility Not VFC Eligible Vaccine Eligibility Date 05/22/21 Enoxaparin Sodium (Enoxaparin 40 Mg/0.4 Ml Syringe) 40 mg SUBQ DAILY [facility] Last Admin: 05/24/21 09:06 Dose: 40 mg Documented by: GLEN Subcutaneous Injection Site Document 05/24/21 09:06 RC (Rec: 05/24/21 09:07 RC [id number]) Site Subcutaneous Injection Site Right Abdomen Hydromorphone HCl (Hydromorphone 1 Mg/Ml Carpuject) 0.5 mg IVP ONCE STA Stop: 05/22/21 10:10 Last Admin: 05/22/21 10:30 Dose: 0.5 mg Documented by: OSBALDO Re-Assess: Pain Reassessment Document 05/22/21 11:00 CP (Rec: 05/22/21 12:26 CP [id number]) Reassessment Effective/Ineffective Effective Cefazolin Sodium 1 gm/ Sodium (Chloride) 100 mls @ 200 mls/hr IV ONCE STA Stop: 05/22/21 10:37 Last Infusion: 05/22/21 12:25 Dose: 200 mls/hr Documented by: THAI Medication Titration Document 05/22/21 12:25 CP (Rec: 05/22/21 12:25 CP [id number]) Titration Intake Titration Intake 100 Cumulative Intake 100 Container Volume 0 Elapsed Time 1h 45m Titration Dosing IV Rate 200 Increase/Decrease Infused Cumulative Dose 1 Total Intake (Rx) 100 Volume Adjustment/Waste 0 Sodium Chloride (Normal Saline 0.9%) 1,000 mls @ 100 mls/hr IV .Q10H [facility] Last Infusion: 05/23/21 15:29 Dose: 0 mls/hr Documented by: SHERRY Medication Titration Document 05/23/21 15:29 AB (Rec: 05/23/21 15:29 AB [id number]) Titration Intake Titration Intake 0 Cumulative Intake 623.333 Container Volume 0 Elapsed Time 6h 14m Titration Dosing IV Rate 0 Increase/Decrease Infused Cumulative Dose Not Applicable Total Intake (Rx) 623.333 Volume Adjustment/Waste 376.667 Sodium Chloride (Normal Saline 0.9%) 1,000 mls @ 83.3 mls/hr IV .Q12H1M [facility] Stop: 05/24/21 07:13 Last Admin: 05/23/21 23:33 Dose: 83.3 mls/hr Documented by: ORA Medication Titration Document 05/23/21 23:33 LUIS (Rec: 05/23/21 23:33 [email or web address] [id number]) Titration Intake Container Volume 1,000 Elapsed Time 11h 18m Titration Dosing IV Rate 83.3 Increase/Decrease Started/Running Cumulative Dose Not Applicable Total Intake (Rx) 941.29 Volume Adjustment/Waste 0 Lactated Ringer's (Lr) mls @ as directed IV .STK-MED ONE Stop: 05/23/21 10:49 Last Admin: 05/23/21 10:48 Dose: 50 mls Documented by: PAINTD Cefazolin Sodium 2 gm/ Sodium (Chloride) 100 mls @ 200 mls/hr IV Q8H [facility] Stop: 05/24/21 00:29 Last Infusion: 05/24/21 00:35 Dose: 0 mls/hr Documented by: ORA Medication Titration Document 05/24/21 00:35 LUIS (Rec: 05/24/21 00:35 LUIS [id number]) Titration Intake Titration Intake 100 Cumulative Intake 100 Container Volume 0 Elapsed Time 1h 32m Titration Dosing IV Rate 0 Increase/Decrease Infused Cumulative Dose 4 Total Intake (Rx) 200 Volume Adjustment/Waste 0 Morphine Sulfate (Morphine 2 Mg/Ml Carpuject) 4 mg IVP ONCE STA Stop: 05/22/21 11:33 Last Admin: 05/22/21 11:46 Dose: 4 mg Documented by: OSBALDO Re-Assess: Pain Reassessment Document 05/22/21 12:16 CP (Rec: 05/22/21 14:35 CP [id number]) Reassessment Effective/Ineffective Effective Morphine Sulfate (Morphine 2 Mg/Ml Carpuject) 4 mg IVP ONCE STA Stop: 05/22/21 12:28 Last Admin: 05/22/21 12:39 Dose: 4 mg Documented by: THAI IVP Start/Stop Document 05/22/21 12:39 CP (Rec: 05/22/21 12:39 CP [id number]) Injection Times IVP Start 12:38 IVP Stop 12:39 Re-Assess: Pain Reassessment Document 05/22/21 13:09 CP (Rec: 05/22/21 14:35 CP [id number]) Reassessment Effective/Ineffective Effective
[2021-05-24] MEDS: oxyCODONE 5 MG TABLET PO PRN (15:54)
[2021-05-24] MEDS: ACETAMINOPHEN 325 MG TABLET PO PRN (15:54)
[2021-05-24 19:23] LABS: HGB - HEMOGLOBIN 7.9 g/dL (12.0-16.0)
[2021-05-24 19:43] LABS: B. PARAPERTUSSIS- RESP PCR PAN NOT DETECTED; B. PERTUSSIS- RESP PCR PANEL NOT DETECTED; C. PNEUMONIAE- RESP PCR PANEL NOT DETECTED; CORONAVIRUS 229E-RESP PCR NOT DETECTED; CORONAVIRUS HKU1-RESP PCR NOT DETECTED; CORONAVIRUS NL63-RESP PCR NOT DETECTED; CORONAVIRUS OC43-RESP PCR NOT DETECTED; HUMAN METAPNEUMOVIRUS NOT DETECTED; INFLUENZA A- RESP PCR PANEL NOT DETECTED; INFLUENZA B - RESP PCR PANEL NOT DETECTED; M. PNEUMONIAE- RESP PCR PANEL NOT DETECTED; PARAINFLUENZA VIRUS 1 NOT DETECTED; PARAINFLUENZA VIRUS 2 NOT DETECTED; PARAINFLUENZA VIRUS 3 NOT DETECTED; PARAINFLUENZA VIRUS 4 NOT DETECTED; RHINOVIRUS/ENTEROVIRUS DETECTED; RSV- RESP PCR PANEL NOT DETECTED; SARS-CoV-2 -RESP PCR PANEL NOT DETECTED
[2021-05-24] MEDS: VENLAFAXINE ER 75 MG CAPSULE PO SCH (21:17)
[2021-05-24] MEDS: buPROPion XL 150 MG TABLET PO SCH (21:17)
[2021-05-25] MEDS: ACETAMINOPHEN 325 MG TABLET PO PRN ×2 (00:10→11:23)
[2021-05-25] MEDS: oxyCODONE 5 MG TABLET PO PRN ×2 (00:10→11:24)
[2021-05-25] MEDS: SODIUM CHLORIDE FLUSH 0.9% 10 ML SYRINGE IVP SCH ×2 (00:11→10:28)
[2021-05-25 06:43] LABS: CALCIUM 8.5 mg/dL (8.5-10.3); CREATININE 0.5 mg/dL (0.4-1.0); POTASSIUM 3.6 mmol/L (3.5-5.0)
[2021-05-25] MEDS: LIOTHYRONINE 5 MCG TABLET PO SCH (07:07)
[2021-05-25] MEDS: LEVOTHYROXINE 100 MCG TABLET PO SCH (07:07)
[2021-05-25 07:27] LABS: BASOPHILS % (AUTO) 0.4 %; EOSINOPHILS % (AUTO) 0.4 %; HCT - HEMATOCRIT 22.9 % (37.0-47.0); HGB - HEMOGLOBIN 7.9 g/dL (12.0-16.0); LYMPHOCYTES % (AUTO) 36.2 %; MEAN CORPUSCULAR HEMOGLOBIN 31.3 pg (27.0-31.0); MEAN CORPUSCULAR HGB CONC 34.5 g/dL (32.0-36.0); MEAN CORPUSCULAR VOLUME 90.9 fL (81.0-99.0); MEAN PLATELET VOLUME 10.1 fL (7.9-10.8); MONOCYTES % (AUTO) 17.4 %; NEUTROPHILS # (AUTO) 2.5 10^3/uL (1.5-6.6); NEUTROPHILS % (AUTO) 45.4 %; PLT - PLATELET COUNT 172 10^3/uL (130-450); RED BLOOD COUNT 2.52 10^6/uL (4.20-5.40); WHITE BLOOD COUNT 5.5 x10^3/uL (4.8-10.8)
[2021-05-25] MEDS ORDERED: ASPIRIN CHEW 81 MG TABLET PO SCH (09:00)
[2021-05-25] MEDS ORDERED: DOCUSATE SODIUM 250 MG CAPSULE PO SCH (09:00)
[2021-05-25] MEDS ORDERED: SENNA 8.6 MG TABLET PO SCH (09:00)
[2021-05-25] MEDS ORDERED: MULTIVITAMIN W/MINERALS TABLET PO SCH (10:00)
[2021-05-25] MEDS: polyethylene glycoL 3350 17 GM PACKET PO SCH (10:27)
[2021-05-25] MEDS: CHOLECALCIFEROL 25 MCG TABLET PO SCH (10:28)
[2021-05-25] MEDS: CALCIUM CARBONATE CHEW 500 MG TABLET PO SCH (10:28)
--- NOTE | 2021-05-25 10:40 | Discharge Plan ---
"Discharge Plan for SNF / SKILLED NURSING - Discharge Plan And Transition Orders Problem Reviewed?: Yes Disposition: 03 SNF DC/Xfer Condition: Stable Allergies and Adverse Reactions: Allergies Allergy/AdvReac Type Severity Reaction Status Date / Time bee venom protein (honey bee) Allergy Anaphylaxis Verified 05/22/21 14:36 Health Concerns: s/p of left tibia and fibula fractures repair, anemia Plan of Treatment: pt had surgery repair for her left tibia and fibula fractures. Pt may followup with orthopedics surgeon in one week, continue pain control, PT/OT, and Aspirin bid for DVT prophylaxis. Pt may have blood work in one week to monitor her HGB level. Medical provider continue to monitor pt's hypothyroidism disease Care Goals: Stabilization and healing of her left tibia and fibula fractures. Assessment: Discussed the care plan in detail with patient, answered patient's questions, patient understood - SNF / [facility] Transition Orders Admit to (Facility): [facility] Under the care of (Name): Provider of [facility] Discharge Diagnosis: open fracture of tibia and fibula left, anemia, depression and anxiety, hypothyroidism. Medicare Certification Statement: I certify that Post Hospital correction care is medically necessary on a continuing basis for any of the conditions for which she/he is receiving care during hospitalization. Notify PCP of admission and forward orders to primary provider for signature. Weight on admission and: Weekly Call PCP immediately if weight increases by: 2 kg Other Notification Orders: Call PCP immediately if patient develops dyspnea, chest pain/tightness or edema. House Bowel Program: Yes Additional Bowel Program Orders: If no BM after 2 days, nurse may give M.O.M. 30ml PO PRN and/or ducolax Supp 1 MO and/or NOE 250mg P.O., and/or senna 1-2 tabs PO. On day 3 nurse may give repeat above order until residents constipation is resolved. Annual Influenza Vaccine (between Jan 17 and August 16): Yes Two-step PPD per [employer] [id number] or approved exception documents: Yes Treatments & Other Orders: pt had surgery repair for her left tibia and fibula fractures. Pt may followup with orthopedics surgeon in one week, continue pain control, PT/OT, and Aspirin bid for DVT prophylaxis. Pt may have blood work in one week to monitor her HGB level. Medical provider continue to monitor pt's hypothyroidism disease Orthopedic Orders: Patients may have nonweightbearing utilizing a front wheeled walker Medication Orders: PLEASE REFER TO THE DISCHARGE MEDICATION LIST. Insulin Orders?: No - Medications New Prescriptions: oxyCODONE [Roxicodone] 5 mg PO Q4HR PRN #20 tablet PRN Reason: Pain 5 to 7 Aspirin Chewable [[place] Aspirin] 81 mg PO BID #60 tablet Levothyroxine [Synthroid] 100 mcg PO QDAC #30 tablet Multivitamin W/Minerals [Theragran M] 1 tab PO DAILYWM #30 tablet Calcium Carbonate [Tums (Calcium Carbonate 500mg)] 500 mg PO BID #60 tablet Cholecalciferol [Vitamin D3] 50 mcg PO DAILY #30 tablet - Diet Type: Geriatric Texture: Regular Liquids: Thin May have monthly special meal: Yes - Therapies | Activity Therapy: Evaluation | Treat if indicated: PT, OT Rehabilitation Potential: Maximize functional status Activity: Activity as Tolerated Weight Bearing: No Weight (on left now)"
--- NOTE | 2021-05-25 11:11 | DISCHARGE SUMMARY ---
"Discharge Summary Admit Date: 05/22/21 Discharge Date: 05/25/21 Discharging Provider: Evgeny Moore Condition at Discharge: Stable Discharge Disposition: SNF DC/Xfer Discharge Facility [facility]: [facility] - DIAGNOSES Discharge Diagnoses with Status of Each Condition: (1) Open fracture of tibia and fibula pt had surgery repair of Open reduction internal fixation left tibia with static locked intramedullary nail. Aspirin bid for DVT prophylaxis per orthopedics's recommendation, pain control, continue PT/OT at SNF, followup with orthopedics office in one week. pt had dressing change by surgeon and had toe-touch weightbearing in a cam boot (2) anemia stable, followup with HGB check in one week. anemia is likely caused by acute bl ood loss from surgery. (3) Depression with anxiety Stable, resume patient home meds (4)Hypothyroidism TSH is normal, resume home synthroid, followup with PCP to manage. 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 pt report when she was at her home perch, skiing on ice and fall. she denies loss of Consciousness. Pt was sent by ambulance. She fell down approximately 1 stair. she complain of left ankle pain after fall. Pt report there was edema and deformity, and bleeding at the left ankle. She is not taking anticoagulation. she denies other injury, there is no head, neck, back pain or hip pain. Xray of Left lower extremity reveal A comminuted distal tibia fracture is displaced and angulated with a crack that extended to the subtalar joint, Associated angulated, displaced distal fibular shaft fracture with overriding. Orthopedic surgeon was called, plan to have surgery on tomorrow. Discussed care goal with patient, patient hope to have DNR - CONSULTS | PROCEDURES Consultations: Procedures: Open reduction internal fixation left tibia with static locked intramedullary nail - ALLERGIES Allergies/Adverse Reactions: Allergies Allergy/AdvReac Type Severity Reaction Status Date / Time bee venom protein (honey bee) Allergy Anaphylaxis Verified 05/22/21 14:36 - MEDICATIONS Home Medications: Ambulatory Orders Medication Instructions Recorded Confirmed Venlafaxine HCl [Effexor Xr] 150 mg PO QPM 05/22/21 05/22/21 buPROPion HCL [Bupropion Xl] 150 mg PO QPM 05/22/21 05/22/21 Aspirin Chewable [St Ejan-Pierre 81 mg PO BID #60 tablet 05/25/21 Aspirin] Calcium Carbonate [Tums (Calcium 500 mg PO BID #60 tablet 05/25/21 Carbonate 500mg)] Cholecalciferol [Vitamin D3] 50 mcg PO DAILY #30 tablet 05/25/21 Levothyroxine [Synthroid] 100 mcg PO QDAC #30 tablet 05/25/21 Multivitamin W/Minerals [Theragran 1 tab PO DAILYWM #30 tablet 05/25/21 M] oxyCODONE [Roxicodone] 5 mg PO Q4HR PRN #20 tablet 05/25/21 - PHYSICAL EXAM AT DISCHARGE General Appearance: positive: No acute distress, Alert. negative: Lethargic Eyes Bilateral: positive: Normal inspection, No lid inflammation ENT: positive: ENT inspection nml, No signs of dehydration. negative: Purulent nasal drainage Neck: positive: Nml inspection, Trachea midline. negative: Tracheal deviation Respiratory: positive: Chest non-tender, No respiratory distress, Breath sounds nml Cardiovascular: positive: Regular rate & rhythm. negative: Tachycardia, Bradycardia, Systolic murmur Peripheral Pulses: positive: 2+ Abdomen: positive: Non-tender, Nml bowel sounds, No distention. negative: Tenderness Back: positive: Nml inspection Skin: positive: Color nml, Warm, Dry. negative: Cyanosis Extremities: positive: Other (pt had silver impregnated dressings just before d/c, and Patient shows no signs or symptoms of infection, compartment syndrome or other complications per surgeon and his PA's essessment.) Neurologic/Psychiatric: positive: Oriented x3, Sensation nml. negative: Weakness, Sensory loss, Facial droop, Slurred/abnml speech, Depressed mood/affect - LABS Result Diagrams: 05/25/21 06:09 05/25/21 06:09 - FOLLOW UP Follow Up: pt had surgery repair for her left tibia and fibula fractures. Pt may followup with orthopedics surgeon in one week, continue pain control, PT/OT, and Aspirin bid for DVT prophylaxis. Pt may have blood work in one week to monitor her HGB level. Medical provider continue to monitor pt's hypothyroidism disease - TIME SPENT Time Spent in Discharge (Minutes): 30"
--- NOTE | 2021-05-25 12:15 | PROVIDER PROGRESS NOTE ---
Subjective - General Admit Date: 05/22/21 Procedure Date: 05/23/21 Post Op Days: 2 Procedure Performed: ORIF left tibia - Review of Systems Wound/Incisions: positive: Dressing dry and intact General: negative: Fever, Chills (Patient is a 71 year old female s/p day 2 left tibial ORIF with nonsurgical treatment of left fibula. Patient denies s/s of infection, pain is well controlled.) Pulmonary: negative: Shortness of breath Cardiovascular: negative: Chest pain Gastrointestinal: negative: Nausea, Vomiting Objective - Patient Data Reviewed Vital Signs: Yes Vital Signs: Vital Signs x48h Temp Pulse Resp BP Pulse Ox 05/25/21 07:48 36.8 C 85 17 110/53 L 94 Weight: Weight 05/23/21 05/24/21 05/25/21 23:59 23:59 23:59 Weight (kg) 66.5 kg Intake & Output: Intake and Output Totals x24h 05/23/21 05/24/21 05/25/21 23:59 23:59 23:59 Intake Total 2069.623 1768 240 Output Total 400 900 650 Balance 1669.623 868 -410 - Lab Results Lab Results: 05/25/21 06:09 05/25/21 06:09 Other Lab Results: Lab Results x24hrs 05/25/21 05/25/21 05/24/21 Range/Units 06:09 06:09 19:20 WBC 5.5 (4.8-10.8) x10^3/uL RBC 2.52 L (4.20-5.40) 10^6/uL Hgb 7.9 L 7.9 L (12.0-16.0) g/dL Hct 22.9 L 23.0 L (37.0-47.0) % MCV 90.9 (81.0-99.0) fL MCH 31.3 H (27.0-31.0) pg MCHC 34.5 (32.0-36.0) g/dL RDW 13.0 (12.0-15.0) % Plt Count 172 (130-450) 10^3/uL MPV 10.1 (7.9-10.8) fL Neut # (Auto) 2.5 (1.5-6.6) 10^3/uL Lymph # (Auto) 2.0 (1.5-3.5) 10^3/uL Barnes # (Auto) 1.0 (0.0-1.0) 10^3/uL Eos # (Auto) 0.0 (0.0-0.7) 10^3/uL Baso # (Auto) 0.0 (0.0-0.1) 10^3/uL Absolute Nucleated RBC 0.00 x10^3/uL Nucleated RBC % 0.0 /100WBC Sodium 137 (135-145) mmol/L Potassium 3.6 (3.5-5.0) mmol/L Chloride 102 (101-111) mmol/L Carbon Dioxide 27 (21-32) mmol/L Anion Gap 8.0 (6-13) BUN 11 (6-20) mg/dL Creatinine 0.5 (0.4-1.0) mg/dL Estimated GFR (MDRD) 122 (>89) Glucose 98 (70-100) mg/dL Calcium 8.5 (8.5-10.3) mg/dL Nasal Adenovirus (PCR) Nasal B. parapertussis DNA (PCR) Nasal Coronavir 229E PCR Nasal Coronavir HKU1 PCR Nasal Coronavir NL63 PCR Nasal Coronavir OC43 PCR Nasal Enterovir/Rhinovir PCR Nasal Influenza B PCR Nasal Influenza A PCR Nasal Parainfluen 1 PCR Nasal Parainfluen 2 PCR Nasal Parainfluen 3 PCR Nasal Parainfluen 4 PCR Nasal RSV (PCR) Nasal B.pertussis DNA PCR Nasal C.pneumoniae (PCR) Ross Human Metapneumo PCR Nasal M.pneumoniae (PCR) Nasal SARS-CoV-2 (PCR) 05/24/21 Range/Units 18:08 WBC (4.8-10.8) x10^3/uL RBC (4.20-5.40) 10^6/uL Hgb (12.0-16.0) g/dL Hct (37.0-47.0) % MCV (81.0-99.0) fL MCH (27.0-31.0) pg MCHC (32.0-36.0) g/dL RDW (12.0-15.0) % Plt Count (130-450) 10^3/uL MPV (7.9-10.8) fL Neut # (Auto) (1.5-6.6) 10^3/uL Lymph # (Auto) (1.5-3.5) 10^3/uL Barnes # (Auto) (0.0-1.0) 10^3/uL Eos # (Auto) (0.0-0.7) 10^3/uL Baso # (Auto) (0.0-0.1) 10^3/uL Absolute Nucleated RBC x10^3/uL Nucleated RBC % /100WBC Sodium (135-145) mmol/L Potassium (3.5-5.0) mmol/L Chloride (101-111) mmol/L Carbon Dioxide (21-32) mmol/L Anion Gap (6-13) BUN (6-20) mg/dL Creatinine (0.4-1.0) mg/dL Estimated GFR (MDRD) (>89) Glucose (70-100) mg/dL Calcium (8.5-10.3) mg/dL Nasal Adenovirus (PCR) NOT DETECTED Nasal B. parapertussis DNA (PCR) NOT DETECTED Nasal Coronavir 229E PCR NOT DETECTED Nasal Coronavir HKU1 PCR NOT DETECTED Nasal Coronavir NL63 PCR NOT DETECTED Nasal Coronavir OC43 PCR NOT DETECTED Nasal Enterovir/Rhinovir PCR DETECTED A Nasal Influenza B PCR NOT DETECTED Nasal Influenza A PCR NOT DETECTED Nasal Parainfluen 1 PCR NOT DETECTED Nasal Parainfluen 2 PCR NOT DETECTED Nasal Parainfluen 3 PCR NOT DETECTED Nasal Parainfluen 4 PCR NOT DETECTED Nasal RSV (PCR) NOT DETECTED Nasal B.pertussis DNA PCR NOT DETECTED Nasal C.pneumoniae (PCR) NOT DETECTED Ross Human Metapneumo PCR NOT DETECTED Nasal M.pneumoniae (PCR) NOT DETECTED Nasal SARS-CoV-2 (PCR) NOT DETECTED - Current Medications Current Medications: Current Medications Generic Name Dose Route Start Last Admin Trade Name Freq PRN Reason Stop Dose Admin Acetaminophen 650 mg 05/22/21 13:32 05/25/21 11:23 Acetaminophen 325 Mg Tablet PO 650 mg Q4HR PRN Administration Pain 1 to 4 Aspirin 81 mg 05/25/21 09:00 05/25/21 10:28 Aspirin Chew 81 Mg Tablet PO 81 mg BID LINDA Administration Bupropion HCl 150 mg 05/22/21 21:00 05/24/21 21:17 Bupropion Xl 150 Mg Tablet PO 150 mg QPM LINDA Administration Calcium Carbonate/Glycine 500 mg 05/23/21 21:00 05/25/21 10:28 Calcium Carbonate Chew 500 Mg Tablet PO 500 mg BID LINDA Administration Cholecalciferol 50 mcg 05/24/21 09:00 05/25/21 10:28 Cholecalciferol 25 Mcg Tablet PO 50 mcg DAILY LINDA Administration Docusate Sodium 250 - 500 mg 05/25/21 09:00 05/25/21 10:27 Docusate Sodium 250 Mg Capsule PO 250 mg DAILY LINDA Administration Levothyroxine Sodium 100 mcg 05/23/21 07:00 05/25/21 07:07 Levothyroxine 100 Mcg Tablet PO 100 mcg QDAC LINDA Administration Liothyronine Sodium 5 mcg 05/23/21 07:00 05/25/21 07:07 Liothyronine 5 Mcg Tablet PO 5 mcg QDAC LINDA Administration Morphine Sulfate 2 mg 05/22/21 13:32 05/24/21 11:45 Morphine 2 Mg/Ml Carpuject IVP 2 mg Q2HR PRN Administration Pain 8 to 10 Multivitamins/Minerals 1 tab 05/25/21 10:00 05/25/21 10:30 Multivitamin W/Minerals Tablet PO 1 tab DAILYWM LINDA Administration Oxycodone HCl 5 mg 05/22/21 13:32 05/25/21 11:24 Oxycodone 5 Mg Tablet PO 5 mg Q4HR PRN Administration Pain 5 to 7 Polyethylene Glycol 17 gm 05/24/21 09:00 05/25/21 10:27 Polyethylene Glycol 3350 17 Gm Packet PO 17 gm DAILY LINDA Administration Senna 8.6 - 17.2 mg 05/25/21 09:00 05/25/21 10:27 Senna 8.6 Mg Tablet PO 8.6 mg DAILY LINDA Administration Sodium Chloride 10 ml 05/22/21 13:32 05/22/21 23:12 Sodium Chloride Flush 0.9% 10 Ml Syringe IVP 10 ml PRN PRN Administration NEEDED PER PROVIDER ORDERS Sodium Chloride 10 ml 05/22/21 17:00 05/25/21 10:28 Sodium Chloride Flush 0.9% 10 Ml Syringe IVP 10 ml 0100,0900,1700 LINDA Administration Venlafaxine HCl 150 mg 05/22/21 21:00 05/24/21 21:17 Venlafaxine Er 75 Mg Capsule PO 150 mg QPM LINDA Administration - Physical Exam Wound/Incisions: positive: Dressing dry and intact General Appearance: positive: No acute distress, Alert Respiratory: positive: No respiratory distress Neurologic/Psychiatric: positive: Oriented x3 Comments/Other: Patients splint was removed, sutures and incisions are intact, no dehiscence. Mild serosanguineous drainage from a few wounds. Mild swelling and ecchymosis. Skin is normal warmth and color. There is no streaking.Compartments soft and compressible, Patient is able to move lower Left leg and ankle and toes without significant pain. Motor and sensation grossly intact. Impression/Plan - Problem List Problem List: Patient 71-year-old female who is postop day 2 left tibial fibula fracture with a rodding of the tibia and nonsurgical treatment of fibular fracture. Splint was removed, silver impregnated dressings applied to her Incisions and patient was placed in a tall cam walker. Patient is toe-touch weightbearing in a cam boot walker with a front wheel walker. Patient should continue to get PT/OT while in hospital and in the SNF. Patient should work on gentle range of motion and patient will remain toe-touch weightbearing for 3 to 4 weeks depending on range of motion and pain. When mostly pain free WB status will be advanced by Prtho provider. Patient shows no signs or symptoms of infection, compartment syndrome or other complications. Patient is being comanaged by the hospitalist, patient's current disposition is to be discharged to halfway facility shortly. Patient is return to clinic within 7 days of hospital discharge.
[2021-05-25 13:55] VITALS: BP 128/46
== END 2021-05-25 15:11 | DRG 493 ==
LOC: EDUNIT# → ED 09:54 → MS2 13:32
PROVIDERS: ADMIT Nurse Practitioner Gerontology; ATTEND Nurse Practitioner Gerontology
PROC: 0QSH06Z Reposition Left Tibia with Intramedullary Internal Fixation Device, Open Approach (ICD-10-PCS; principal; 2021-05-23 07:30)
DX: S82.252B Displaced comminuted fracture of shaft of left tibia, initial encounter for open fracture type I or II (principal); S82.832B Other fracture of upper and lower end of left fibula, initial encounter for open fracture type I or II; S82.232B Displaced oblique fracture of shaft of left tibia, initial encounter for open fracture type I or II; Y92.009 Unspecified place in unspecified non-institutional (private) residence as the place of occurrence of the external cause; D62 Acute posthemorrhagic anemia; S82.432B Displaced oblique fracture of shaft of left fibula, initial encounter for open fracture type I or II; W00.1XXA Fall from stairs and steps due to ice and snow, initial encounter; Y92.008 Other place in unspecified non-institutional (private) residence as the place of occurrence of the external cause; F41.8 Other specified anxiety disorders; E03.9 Hypothyroidism, unspecified; Z66 Do not resuscitate; Z85.72 Personal history of non-Hodgkin lymphomas; Z87.891 Personal history of nicotine dependence; Z20.822 Contact with and (suspected) exposure to COVID-19
CPT/HCPCS: 29515; 36415; 71045; 73610; 80048; 80053; 82607; 82728; 83540; 83615; 83690; 84443; 84466; 85014; 85018; 85025; 85045; 85610; 87631; 90471; 90715; 93005; 96365; 96366; 96375; 96376; 97162; 97165; 97530; 99285; A9270; C1713; J1170; J1650; J7120; 0202U